=== PATIENT | male | born 1950 | race Caucasian/White ===

== ENCOUNTER 2020-06-18 11:18 | Outpatient (REF) | payer MEDICARE, SELFPAY ==
--- NOTE | 2020-06-18 11:20 | CT_ITS ---
EXAMINATION: CT CHEST SCREENING CLINICAL INFORMATION: Nicotine dependence. COMPARISON: CT chest 05/30/2019. TECHNIQUE: Multidetector volumetric CT imaging of the chest is performed without contrast using low dose technique. Additional 2D coronal and sagittal reformatted images and axial 3D maximum intensity projection (MIP) images are generated on the CT workstation. This CT examination was performed using dose optimization techniques as appropriate, variously including the following: *Automated exposure control *Adjustment of mA and/or kV according to patient size (this includes techniques or standardized protocols for targeted exams where dose is matched to indication/reason for exam; i.e. extremities or head) *Use of iterative reconstruction technique DLP: 48 mGy-cm FINDINGS: LUNGS: There is bilateral minimal apical pleural thickening and scarring. The lungs are otherwise well expanded. There is a 2 mm nodule right upper lobe adjacent to the major fissure on axial image 230/5. Previously it was slightly larger 4 mm. Previously seen defined densities in the right upper lobe have resolved. No new nodule seen. There is plate-like atelectasis in both lung bases. MEDIASTINUM: The thyroid lobes are symmetrical and normal. The central trachea and the bronchi are widely patent. Heart size and the great vessels are normal caliber. No pericardial effusion seen. There are coronary artery calcifications seen. No abnormal-sized mediastinal or hilar lymph node seen. PLEURA: There is no pleural effusion. No pleural mass or thickening. AXILLA: No lymphadenopathy. UPPER ABDOMEN: Visualized liver, spleen, pancreas and bilateral adrenal glands are unremarkable. OSSEOUS STRUCTURES: There are degenerative disc changes and spondylosis with endplate sclerosis at several thoracic and upper lumbar spine. No fracture or lytic process seen. CT/CT lung screening IMPRESSION: Small nodule in the right upper lobe adjacent to the major fissure slightly improved since previous study. Ill-defined nodules in the right upper lobe have resolved. No new nodule seen. Degenerative disc changes throughout dorsal and lumbar spine. ASSESSMENT: Lung-RADS category 2: Benign. RECOMMENDATION: Low dose annual CT chest.
== END 2020-06-18 11:19 | disposition home or self-care (01) ==
LOC: HO.CT 11:18
PROVIDERS: Visit Provider Physician Assistant Medical
DX: Z12.2 Encounter for screening for malignant neoplasm of respiratory organs (principal); F17.210 Nicotine dependence, cigarettes, uncomplicated
CPT/HCPCS: 71271

== ENCOUNTER 2020-06-25 09:02 | Outpatient (REF) | payer MEDICARE, SELFPAY ==
[2020-06-25 11:45] LABS: Cholesterol 216 mg/dL; HDL Cholesterol 40 mg/dL; LDL Cholesterol Calculated 143 mg/dl; Triglycerides 165 mg/dL
== END 2020-06-25 09:03 | disposition home or self-care (01) ==
LOC: HO.HMGCLDS 09:02
PROVIDERS: PCP Internal Medicine; Visit Provider Internal Medicine
DX: E78.5 Hyperlipidemia, unspecified (principal)
CPT/HCPCS: 36415; 80061

== ENCOUNTER 2020-10-22 08:01 | Outpatient (REF) | payer MEDICARE, SELFPAY ==
[2020-10-22 11:59] LABS: Cholesterol 190 mg/dL; HDL Cholesterol 36 mg/dL; LDL Cholesterol Calculated 131 mg/dl; Triglycerides 116 mg/dL
== END 2020-10-22 08:02 | disposition home or self-care (01) ==
LOC: HO.HMGCLDS 08:01
PROVIDERS: PCP Internal Medicine; Visit Provider Internal Medicine
DX: E11.9 Type 2 diabetes mellitus without complications (principal)
CPT/HCPCS: 36415; 80061

== ENCOUNTER 2021-04-05 08:11 | Outpatient (REF) | payer MEDICARE, SELFPAY ==
[2021-04-05 11:27] LABS: MANUAL DIFF FLAG NO
[2021-04-05 11:37] LABS: Basophils Absolute Auto 0.1 X10*3/uL (0.0-0.2); Basophils Percent Auto 0.5 % (0-2); Eosinophils Absolute Auto 0.4 X10*3/uL (0.0-0.4); Hematocrit 43.9 % (42-52); Hemoglobin 14.5 g/dl (14.0-18.0); Imm Gran Abs Auto 0.04 X10*3/uL (0.00-0.03); Imm Gran Pct Auto 0.4 % (0.0-0.4); Lymphocytes Absolute Auto 2.7 X10*3/uL (1.2-4.9); Lymphocytes Percent Auto 28.6 % (20-40); Mean Corpuscular Hemoglobin 31.5 pg (27.0-33.0); Mean Corpuscular Volume 95.2 fL (80-98); Mean Platelet Volume 10.9 fL (9.4-12.4); Monocytes Absolute Auto 0.8 X10*3/uL (0.1-1.2); Monocytes Percent Auto 8.7 % (2-11); Neutrophils Absolute Auto 5.5 X10*3/uL (2.0-8.3); Neutrophils Percent Auto 57.8 % (45-73); Platelet Count 272 X10*3/uL (160-400); Red Blood Count 4.61 X10*6/uL (4.60-5.80); Red Cell Distribution Width 12.9 % (11.0-16.0); White Blood Count 9.6 X10*3/uL (4.8-10.8)
[2021-04-05 12:00] LABS: Alanine Aminotransferase 11 U/L (0-40); Albumin Level 4.1 g/dL (3.5-5.0); Alkaline Phosphatase 54 U/L (39-117); Anion Gap 13 (12-20); Aspartate Amino Transferase 15 U/L (5-37); Bilirubin Total 0.4 mg/dL (0.0-1.0); Blood Urea Nitrogen 17 mg/dL (9-16); Calcium 9.8 mg/dL (8.4-10.2); Carbon Dioxide 26 mmol/L (22-29); Chloride 108 mmol/L (96-108); Cholesterol 197 mg/dL; Estimated Glomerular Filt Rate > 60; Glucose Fasting 86 mg/dL (60-99); HDL Cholesterol 40 mg/dL; LDL Cholesterol Calculated 126 mg/dl; Potassium 4.6 mmol/L (3.3-5.1); Sodium 142 mmol/L (135-145); Total Protein 7.2 g/dL (6.5-8.0); Triglycerides 158 mg/dL
[2021-04-05 12:22] LABS: Thyroid Stimulating Hormone 0.78 uIU/mL (0.32-4.0)
== END 2021-04-05 08:12 | disposition home or self-care (01) ==
LOC: HO.HMGCLDS 08:11
PROVIDERS: PCP Internal Medicine; Visit Provider Internal Medicine
DX: Z00.00 Encounter for general adult medical examination without abnormal findings (principal); E03.9 Hypothyroidism, unspecified; E11.9 Type 2 diabetes mellitus without complications
CPT/HCPCS: 36415; 80053; 80061; 84443; 85025

== ENCOUNTER 2022-04-08 08:40 | Outpatient (REF) | payer MEDICARE, SELFPAY ==
[2022-04-08 11:25] LABS: MANUAL DIFF FLAG NO
[2022-04-08 11:35] LABS: Basophils Absolute Auto 0.1 X10*3/uL (0.0-0.2); Basophils Percent Auto 0.5 % (0-2); Eosinophils Absolute Auto 0.3 X10*3/uL (0.0-0.4); Eosinophils Percent Auto 2.7 % (0-4); Hematocrit 44.3 % (42.0-52.0); Hemoglobin 14.8 g/dl (14.0-18.0); Imm Gran Abs Auto 0.03 X10*3/uL (0.00-0.03); Imm Gran Pct Auto 0.3 % (0.0-0.4); Lymphocytes Absolute Auto 2.8 X10*3/uL (1.2-4.9); Lymphocytes Percent Auto 29.7 % (20-40); Mean Corpuscular HGB Conc 33.4 g/dl (31.0-36.0); Mean Corpuscular Hemoglobin 31.2 pg (27.0-33.0); Mean Corpuscular Volume 93.5 fL (80.0-98.0); Mean Platelet Volume 11.1 fL (9.4-12.4); Monocytes Absolute Auto 0.9 X10*3/uL (0.1-1.2); Monocytes Percent Auto 9.4 % (2-11); Neutrophils Absolute Auto 5.4 x10*3/uL (2.0-8.3); Neutrophils Percent Auto 57.4 % (45-73); Platelet Count 272 X10*3/uL (160-400); Red Blood Count 4.74 X10*6/uL (4.60-5.80); Red Cell Distribution Width 12.5 % (11.0-16.0); White Blood Count 9.4 X10*3/uL (4.8-10.8)
[2022-04-08 11:57] LABS: Alanine Aminotransferase 7 U/L (0-40); Albumin Level 4.1 g/dL (3.5-5.0); Alkaline Phosphatase 60 U/L (39-117); Anion Gap 14 (12-20); Aspartate Amino Transferase 13 U/L (5-37); Bilirubin Total 0.4 mg/dL (0.0-1.0); Blood Urea Nitrogen 21 mg/dL (9-16); Calcium 9.8 mg/dL (8.4-10.2); Carbon Dioxide 25 mmol/L (22-29); Chloride 108 mmol/L (96-108); Cholesterol 217 mg/dL; Estimated Glomerular Filt Rate 60; Glucose Fasting 106 mg/dL (60-99); HDL Cholesterol 36 mg/dL; LDL Cholesterol Calculated 154 mg/dl; Potassium 4.9 mmol/L (3.3-5.1); Sodium 142 mmol/L (135-145); Total Protein 7.2 g/dL (6.5-8.0); Triglycerides 139 mg/dL
== END 2022-04-08 08:41 | disposition home or self-care (01) ==
LOC: HO.HMGCLDS 08:40
PROVIDERS: PCP Internal Medicine; Visit Provider Internal Medicine
DX: Z00.00 Encounter for general adult medical examination without abnormal findings (principal); Z13.0 Encounter for screening for diseases of the blood and blood-forming organs and certain disorders involving the immune mechanism
CPT/HCPCS: 36415; 80053; 80061; 85025

== ENCOUNTER 2022-09-12 23:59 | Emergency (ER) | payer MEDICARE, SELFPAY ==
--- NOTE | ~2022-09-12 | XR_ITS ---
EXAMINATION: XR CHEST CLINICAL INFORMATION: Fever COMPARISON: CT chest 06/18/2020, chest radiograph 05/02/2013 TECHNIQUE: 2 views of the chest were obtained. FINDINGS: Degenerative changes are present throughout the spine with biconvex thoracolumbar scoliosis. No other significant abnormality is noted involving the heart, lungs, mediastinum, bony thorax or soft tissues. XR/XR chest 2V IMPRESSION: No acute intrathoracic disease.
--- NOTE | ~2022-09-12 | CT_ITS ---
EXAMINATION: CT ABDOMEN AND PELVIS WITH CONTRAST CLINICAL INFORMATION: Fever hypotension COMPARISON: None available. TECHNIQUE: Multidetector volumetric images were obtained from the superior aspect of the liver through the pubic symphysis following administration 85 mL of Omnipaque 350 intravenous contrast. Sagittal and coronal reformatted images were obtained on the technologist's workstation. Oral contrast: No This CT examination was performed using dose optimization techniques as appropriate, variously including the following: *Automated exposure control *Adjustment of mA and/or kV according to patient size (this includes techniques or standardized protocols for targeted exams where dose is matched to indication/reason for exam; i.e. extremities or head) *Use of iterative reconstruction technique DLP: 385 mGy-cm FINDINGS: LUNG BASES: The visualized lung bases are unremarkable. LIVER, GALLBLADDER, AND BILIARY TREE: The liver is normal in size, shape, and attenuation. No focal hepatic lesion or biliary ductal dilatation is present. The gallbladder is unremarkable with no evidence of radiopaque gallstones, gallbladder wall thickening, or obvious pericholecystic inflammatory changes. PANCREAS: Unremarkable. SPLEEN: Unremarkable. ADRENAL GLANDS: Unremarkable. KIDNEYS AND URETERS: The kidneys are normal in size, shape, and attenuation. There is a punctate nonobstructive calculus in the region of left kidney. There are bilateral simple renal cysts which are benign. No follow-up imaging recommended. No hydronephrosis or hydroureter. No perinephric abnormalities. BLADDER: Unremarkable. GASTROINTESTINAL TRACT: Normal appendix. Scattered left colonic diverticula without evidence of diverticulitis. Stomach and small bowel unremarkable. ABDOMINAL WALL: No significant hernia is appreciated. LYMPH NODES: Normal. VASCULAR: Aorta is atherosclerotic but normal caliber. Patent vascular structures. PELVIC VISCERA: Unremarkable. OSSEOUS STRUCTURES: No acute or suspicious osseous abnormalities. CT/CT abdomen pelvis w IV con IMPRESSION: * No acute findings within the abdomen or pelvis to explain the patient's symptomatology. * Punctate nonobstructive calculus, left kidney. * Scattered left colonic diverticula without evidence of diverticulitis.
[2022-09-13 00:28] VITALS: BP 137/71; PULSE 98; RESP 16; TEMP 39; O2SAT 97; BMI 20.9
--- NOTE | 2022-09-13 01:08 | ED.FEVER ---
HPI - Fever General Chief Complaint: Fever Stated Complaint: Fever/shakes for 3 hours Time Seen by Provider: 09/13/22 01:06 Source: patient Mode of arrival: ambulatory Limitations: no limitations History of Present Illness HPI Narrative: Patient was healthy came here for fever temperature of 105 degrees at home with shaking chills no cough no urinary symptoms no abdominal pain no nausea no vomiting no other family member sick no history of bacteremia in the past Related Data Home Medications Medication Instructions Recorded Confirmed cholecalciferol (vitamin D3) 25 25 mcg PO DAILY 06/29/20 04/12/22 mcg (1,000 unit) capsule multivitamin 1 tab PO DAILY 10/27/20 04/12/22 Previous Rx's Medication Instructions Recorded ibuprofen 800 mg tablet 800 mg PO Q8H #90 tabs 10/20/20 pravastatin 20 mg tablet 20 mg PO DAILY #90 tabs 04/01/22 cefuroxime axetil 500 mg tablet 500 mg PO BID #14 tabs 09/13/22 ibuprofen 600 mg tablet 600 mg PO Q6H PRN fever or pain 09/13/22 #30 tabs Allergies Allergy/AdvReac Type Severity Reaction Status Date / Time No Known Allergies Allergy Verified 04/12/22 08:43 Review of Systems Review of Systems: Yes all other systems are reviewed and are negative PMFSH Past Medical History Medical History Hyperlipidemia Surgical History H/O basal cell carcinoma excision History of eye surgery Family History Family History Father Stroke Mother No problems noted. Brother No problems noted. Sister Lung cancer Social History Social History Housing: House Alcohol intake: never Patient Tobacco Use Status: Current everyday Tobacco user Tobacco use type: Cigarette Cigarettes Per Day: 10 e-Cigarette/Vaping Use: Never Used Second Hand Smoke Exposure: Yes Advance Directives: No Advance Directives Information Provided: Yes service: No Current occupational status: retired Current occupational exposures/hazards: No Cognitive needs: No Hearing needs: No Vision needs: Yes Physical Exam Vital Signs: Vital Signs: Last Vital Signs Temp 97.7 F 09/13/22 05:55 Pulse 72 09/13/22 05:55 Resp 17 09/13/22 03:26 BP 99/57 L 09/13/22 05:55 Pulse Ox 94 09/13/22 05:55 O2 Del Method Room Air 09/13/22 05:55 BMI result Body Mass Index 20.9 Appearance: Alert. Oriented X3. No acute distress. Eyes: No pallor or icterus ENT: Pharynx normal. Oral Mucosa moist Neck: Normal inspection. Neck supple. CVS: Normal heart rate and rhythm. Pulses normal. Respiratory: No respiratory distress. Equal air entry bilateral, no wheezing/rales/rhonchi Abdomen: Soft and nontender. Bowel sounds are present, no mass palpable, no CVA tenderness Skin: Skin warm and dry. Normal skin color. Normal skin turgor. Extremities: No lower extremity edema. No calf tenderness Neuro: Oriented X 3. No motor deficit. No sensory deficit.No cerebellar signs , cranial nerves II-XII intact Medications Administered Discontinued Medications Generic Name Dose Route Start Last Admin Trade Name Freq PRN Reason Stop Dose Admin Sodium Chloride 1,000 mls @ 999 mls/hr 09/13/22 01:23 09/13/22 01:30 Ns IV 09/13/22 02:23 999 mls/hr .Q1H1M ONE Administration Ceftriaxone Sodium 1 gm/ 50 mls @ 100 mls/hr 09/13/22 01:24 09/13/22 01:29 Sodium Chloride IV 09/13/22 01:53 100 mls/hr ONCE ONE Administration Sodium Chloride 1,000 mls @ 999 mls/hr 09/13/22 03:34 09/13/22 03:35 Ns IV 09/13/22 04:34 999 mls/hr .Q1H1M ONE Administration Ibuprofen 600 mg 09/13/22 01:23 09/13/22 01:29 Ibuprofen 600 Mg Tablet PO 09/13/22 01:24 600 mg ONCE ONE Administration Iohexol 85 ml 09/13/22 04:45 09/13/22 04:45 Iohexol 350 Mg/Ml 100 Ml Infus..Btl IV 09/13/22 04:46 85 ml ONCE ONE Administration Medical Decision Making Medical Decision Making [facility] Narrative: Patient with fever of unknown origin prostate was not tender CT scan abdomen was done to rule out any occult infection which is also negative white count slightly elevated with left shift lactic acid level was normal patient's transient hypotension improved after IV fluids. Patient received IV dose of Rocephin and discharge patient on Ceftin pending blood culture Differential Diagnosis Bacteremia/Gram-negative bacteremia/prostatitis/UTI/pneumonia Lab Data [facility] Lab Attestation statement: I reviewed the patient's lab results. 09/13/22 01:06 09/13/22 01:06 Labs: Lab Results 09/13/22 09/13/22 09/13/22 Range/Units 01:06 01:06 01:06 WBC 14.8 H (4.8-10.8) X10*3/uL RBC 4.46 L (4.60-5.80) X10*6/uL Hgb 13.7 L (14.0-18.0) g/dl Hct 41.0 L (42.0-52.0) % MCV 91.9 (80.0-98.0) fL MCH 30.7 (27.0-33.0) pg MCHC 33.4 (31.0-36.0) g/dl RDW 12.9 (11.0-16.0) % Plt Count 218 (160-400) X10*3/uL MPV 10.2 (9.4-12.4) fL Immature Gran % (Auto) 0.5 H (0.0-0.4) % Neut % (Auto) 83.9 H (45-73) % Lymph % (Auto) 6.2 L (20-40) % [place] % (Auto) 8.7 (2-11) % Eos % (Auto) 0.4 (0-4) % Baso % (Auto) 0.3 (0-2) % Lymph # (Auto) 0.9 L (1.2-4.9) X10*3/uL [place] # (Auto) 1.3 H (0.1-1.2) X10*3/uL Eos # (Auto) 0.1 (0.0-0.4) X10*3/uL Baso # (Auto) 0.1 (0.0-0.2) X10*3/uL Abs Immat Gran (auto) 0.07 H (0.00-0.03) X10*3/uL Absolute Neuts (auto) 12.4 H (2.0-8.3) x10*3/uL Absolute Nucleated RBC 0.000 (0.0-0.012) X10*3/uL Nucleated RBC % (auto) 0.0 (0.0-0.2) /100WBC Sodium 136 (135-145) mmol/L Potassium 4.2 (3.3-5.1) mmol/L Chloride 107 (96-108) mmol/L Carbon Dioxide 21 L (22-29) mmol/L Anion Gap 12 (12-20) BUN 21 H (9-16) mg/dL Creatinine 1.48 H (0.5-1.4) mg/dL Estim Creat Clear Calc 37.6 Estimated GFR 47 Fasting Glucose 96 (60-99) mg/dL Lactic Acid 1.1 (0.5-2.0) mmol/L Calcium 8.9 D (8.4-10.2) mg/dL Total Bilirubin 0.2 (0.0-1.0) mg/dL AST 16 (5-37) U/L ALT 10 (0-40) U/L Alkaline Phosphatase 62 (39-117) U/L Total Protein 6.5 (6.5-8.0) g/dL Albumin 3.8 (3.5-5.0) g/dL Urine Color Urine Appearance Urine pH (5.0-9.0) Ur Specific [place] (1.005-1.025) Urine Protein (Neg-Trace) mg/dL Urine Glucose (UA) (Negative) mg/dL Urine Ketones (Negative) mg/dL Urine Blood (Negative) Urine Nitrite (Negative) Ur Leukocyte Esterase (Negative) Urine RBC (0-2) /HPF Urine WBC (0-5) /HPF Ur Squamous Epith Cells (0-2) /HPF Urine Bacteria (None Seen) Hyaline Casts (0-2) /LPF Influenza Type A (PCR) (Negative) Influenza Type B (PCR) (Negative) RSV RNA Qual (PCR) (Negative) SARS-CoV-2 RNA (RT-PCR) (Negative) 09/13/22 09/13/22 Range/Units 01:06 02:58 WBC (4.8-10.8) X10*3/uL RBC (4.60-5.80) X10*6/uL Hgb (14.0-18.0) g/dl Hct (42.0-52.0) % MCV (80.0-98.0) fL MCH (27.0-33.0) pg MCHC (31.0-36.0) g/dl RDW (11.0-16.0) % Plt Count (160-400) X10*3/uL MPV (9.4-12.4) fL Immature Gran % (Auto) (0.0-0.4) % Neut % (Auto) (45-73) % Lymph % (Auto) (20-40) % [place] % (Auto) (2-11) % Eos % (Auto) (0-4) % Baso % (Auto) (0-2) % Lymph # (Auto) (1.2-4.9) X10*3/uL [place] # (Auto) (0.1-1.2) X10*3/uL Eos # (Auto) (0.0-0.4) X10*3/uL Baso # (Auto) (0.0-0.2) X10*3/uL Abs Immat Gran (auto) (0.00-0.03) X10*3/uL Absolute Neuts (auto) (2.0-8.3) x10*3/uL Absolute Nucleated RBC (0.0-0.012) X10*3/uL Nucleated RBC % (auto) (0.0-0.2) /100WBC Sodium (135-145) mmol/L Potassium (3.3-5.1) mmol/L Chloride (96-108) mmol/L Carbon Dioxide (22-29) mmol/L Anion Gap (12-20) BUN (9-16) mg/dL Creatinine (0.5-1.4) mg/dL Estim Creat Clear Calc Estimated GFR Fasting Glucose (60-99) mg/dL Lactic Acid (0.5-2.0) mmol/L Calcium (8.4-10.2) mg/dL Total Bilirubin (0.0-1.0) mg/dL AST (5-37) U/L ALT (0-40) U/L Alkaline Phosphatase (39-117) U/L Total Protein (6.5-8.0) g/dL Albumin (3.5-5.0) g/dL Urine Color Yellow Urine Appearance Clear Urine pH 5.5 (5.0-9.0) Ur Specific [place] 1.010 (1.005-1.025) Urine Protein Negative (Neg-Trace) mg/dL Urine Glucose (UA) Negative (Negative) mg/dL Urine Ketones Negative (Negative) mg/dL Urine Blood Negative (Negative) Urine Nitrite Negative (Negative) Ur Leukocyte Esterase Trace H (Negative) Urine RBC 0-2 (0-2) /HPF Urine WBC 0-5 (0-5) /HPF Ur Squamous Epith Cells 0-2 (0-2) /HPF Urine Bacteria None Seen (None Seen) Hyaline Casts 0-2 (0-2) /LPF Influenza Type A (PCR) NEGATIVE (Negative) Influenza Type B (PCR) NEGATIVE (Negative) RSV RNA Qual (PCR) NEGATIVE (Negative) SARS-CoV-2 RNA (RT-PCR) NEGATIVE (Negative) Discharge Plan Discharge Clinical Impression: Fever of unknown origin Patient Disposition: Home, Self-Care Instructions: Fever in Adults (ED) Additional Instructions: Keep hydrated Cause of fever not clear Take antibiotics as prescribed Report to the ER if continued to have fever not feeling good Prescriptions: New ibuprofen 600 mg tablet 600 mg PO Q6H PRN (Reason: fever or pain) Qty: 30 0RF cefuroxime axetil 500 mg tablet 500 mg PO BID Qty: 14 0RF No Action ibuprofen 800 mg tablet 800 mg PO Q8H Qty: 90 8RF pravastatin 20 mg tablet 20 mg PO DAILY Qty: 90 3RF cholecalciferol (vitamin D3) 25 mcg (1,000 unit) capsule 25 mcg PO DAILY multivitamin Tablet 1 tab PO DAILY
[2022-09-13 01:18] LABS: Basophils Absolute Auto 0.1 X10*3/uL (0.0-0.2); Basophils Percent Auto 0.3 % (0-2); Eosinophils Absolute Auto 0.1 X10*3/uL (0.0-0.4); Eosinophils Percent Auto 0.4 % (0-4); Hemoglobin 13.7 g/dl (14.0-18.0); Imm Gran Abs Auto 0.07 X10*3/uL (0.00-0.03); Imm Gran Pct Auto 0.5 % (0.0-0.4); Lymphocytes Absolute Auto 0.9 X10*3/uL (1.2-4.9); Lymphocytes Percent Auto 6.2 % (20-40); MANUAL DIFF FLAG NO; Mean Corpuscular HGB Conc 33.4 g/dl (31.0-36.0); Mean Corpuscular Hemoglobin 30.7 pg (27.0-33.0); Mean Corpuscular Volume 91.9 fL (80.0-98.0); Mean Platelet Volume 10.2 fL (9.4-12.4); Monocytes Absolute Auto 1.3 X10*3/uL (0.1-1.2); Monocytes Percent Auto 8.7 % (2-11); Neutrophils Absolute Auto 12.4 x10*3/uL (2.0-8.3); Neutrophils Percent Auto 83.9 % (45-73); Platelet Count 218 X10*3/uL (160-400); Red Blood Count 4.46 X10*6/uL (4.60-5.80); Red Cell Distribution Width 12.9 % (11.0-16.0); White Blood Count 14.8 X10*3/uL (4.8-10.8)
[2022-09-13 01:28] LABS: Lactic Acid 1.1 mmol/L (0.5-2.0)
[2022-09-13] MEDS: Ibuprofen 600 MG TABLET PO (01:29)
[2022-09-13] MEDS: cefTRIAXone sodium 1 GM in 0.9 % Sodium Chloride 50 ML IV (01:29)
[2022-09-13] MEDS: 0.9 % Sodium Chloride 1,000 ML 999 ML IV ×2 (01:30→03:35)
[2022-09-13 01:45] LABS: Alanine Aminotransferase 10 U/L (0-40); Albumin Level 3.8 g/dL (3.5-5.0); Alkaline Phosphatase 62 U/L (39-117); Anion Gap 12 (12-20); Aspartate Amino Transferase 16 U/L (5-37); Bilirubin Total 0.2 mg/dL (0.0-1.0); Blood Urea Nitrogen 21 mg/dL (9-16); Calcium 8.9 mg/dL (8.4-10.2); Carbon Dioxide 21 mmol/L (22-29); Chloride 107 mmol/L (96-108); Creatinine Clr Calc Pharmacy 37.6; Estimated Glomerular Filt Rate 47; Glucose Fasting 96 mg/dL (60-99); Potassium 4.2 mmol/L (3.3-5.1); Sodium 136 mmol/L (135-145); Total Protein 6.5 g/dL (6.5-8.0)
[2022-09-13 01:55] LABS: Influenza A PCR NEGATIVE (Negative); Influenza B PCR NEGATIVE (Negative); Resp Syncy Virus RNA Qual PCR NEGATIVE (Negative); SARS COV2 PCR INHOUSE NEGATIVE (Negative)
[2022-09-13 03:11] LABS: Appearance Urine Clear; Color Urine Yellow; Glucose Urine UA Negative (Negative); Leukocyte Esterase Urine Trace (Negative); Nitrite Urine Negative (Negative); PH 5.5 (5.0-9.0); UMIC TRIGGER UACC YES; Urine Blood Negative (Negative); Urine Ketones Negative (Negative); Urine Protein Negative (Neg-Trace)
[2022-09-13 03:15] LABS: Bacteria Urine None Seen (None Seen); Hyaline Casts Urine 0-2 /LPF (0-2); RBC Urine 0-2 /HPF (0-2); Squamous Epithelial Cell Urine 0-2 /HPF (0-2); WBC Urine 0-5 /HPF (0-5)
[2022-09-13 03:26] VITALS: BP 84/47; PULSE 94; RESP 17; TEMP 36.7; O2SAT 94
[2022-09-13] MEDS: iohexoL 350 MG/ML 100 ML INFUS..BTL 85 ML IV (04:45)
[2022-09-13 05:55] VITALS: BP 99/57; PULSE 72; TEMP 36.5; O2SAT 94
[2022-09-13 06:52] VITALS: TEMP 36.8
== END 2022-09-13 06:54 | disposition home or self-care (01) ==
PROVIDERS: Emergency Provider Internal Medicine; PCP Internal Medicine
DX: R50.9 Fever, unspecified (principal); Z20.822 Contact with and (suspected) exposure to COVID-19; Z20.828 Contact with and (suspected) exposure to other viral communicable diseases
CPT/HCPCS: 0241U; 36415; 71046; 74177; 80053; 81001; 83605; 85025; 87040; 87077; 87186; 87205; 96374; 99284; 99285; J0696; Q9967

== ENCOUNTER 2022-09-13 14:39 | Inpatient (IN) | payer MEDICARE, OTHER, SELFPAY ==
--- NOTE | ~2022-09-13 | CT_ITS ---
EXAMINATION: CT CHEST WITHOUT CONTRAST CLINICAL INFORMATION: Shortness of breath and pneumonia COMPARISON: CT chest 06/18/2020, Chest radiograph earlier today : -Trace blunting left lateral costophrenic angle. Otherwise no overt effusion. -No airspace consolidation or air bronchogram. TECHNIQUE: Multidetector volumetric CT imaging of the chest was done. Axial MIP volume rendering provided. Sagittal and coronal reformatted images were obtained. This CT examination was performed using dose optimization techniques as appropriate, variously including the following: *Automated exposure control *Adjustment of mA and/or kV according to patient size (this includes techniques or standardized protocols for targeted exams where dose is matched to indication/reason for exam; i.e. extremities or head) *Use of iterative reconstruction technique DLP: 245 mGy-cm FINDINGS: LUNGS: Bibasilar atelectasis is present. No evidence of pneumonia or consolidation. A tiny right middle lobe. Fissural 3 mm nodule is present (5:252) which was also present on the 06/18/2020 CT (prior 6:259). No worrisome lung masses are seen. MEDIASTINUM: Heart size normal. No pericardial effusion. No mediastinal or hilar lymphadenopathy. Calcific atherosclerotic changes seen in the thoracic aorta without aneurysm. CORONARY ARTERY CALCIFICATION: Extensive triple-vessel coronary calcifications PLEURA: There is no pleural effusion. No pleural mass or thickening. AXILLA: No lymphadenopathy. UPPER ABDOMEN: There is vicarious excretion of contrast in the bladder from CT abdomen performed this morning. A benign Bosniak class I left renal cyst is again seen. This requires no additional imaging or follow-up OSSEOUS STRUCTURES: Moderate degenerative changes are present throughout the spine. No bony destructive lesions. CT/CT chest wo IV con IMPRESSION: 1. A cause for the patient's shortness of breath has not been found. 2. No evidence of pneumonia. 3. Incidental note made of extensive triple-vessel coronary calcifications, unchanged 3 mm pulmonary nodule and degenerative changes in the spine. Fleischner guidelines were followed.
--- NOTE | ~2022-09-13 | XR_ITS ---
EXAMINATION: XR CHEST CLINICAL INFORMATION: Fever, shortness of breath. COMPARISON: Chest radiographs 09/13/2022, 05/02/2013, CT abdomen 09/13/2022. TECHNIQUE: Frontal view of the chest was obtained. FINDINGS: There is no lobar or segmental airspace consolidation or groundglass opacity. There is borderline blunting left lateral costophrenic angle. Otherwise no overt effusion. Faint nipple shadow again seen on right. The heart is normal in size. The vascularity is normal. The hilar and mediastinal contours and bony structures are stable. XR/XR chest 1V IMPRESSION: -Trace blunting left lateral costophrenic angle. Otherwise no overt effusion. -No airspace consolidation or air bronchogram.
--- NOTE | 2022-09-13 15:04 | ED_ITS ---
HPI - General Adult General Chief complaint: Recheck/Abnormal Lab/Rx <FRANCISCO Bland - Last Filed: 09/13/22 15:07> Stated complaint: Abnormal labs <FRANCISCO Bland - Last Filed: 09/13/22 15:07> Time Seen by Provider: 09/13/22 17:14 <FRANCISCO Bland - Last Filed: 09/13/22 15:07> Source: patient and family <Kylie Campbell MD - Last Filed: 09/13/22 20:10> Mode of arrival: ambulatory <Kylie Campbell MD - Last Filed: 09/13/22 20:10> History of Present Illness HPI narrative: 71-year-old male who is an everyday smoker presents after being called for blood cultures growing Gram-negative rods demonstrating bacteremia. On review of patient's previous workup he had fevers with a T-max of 102 degrees, chills, and has had a persistent cough for over a month. Patient was discharged home as imaging studies were not indicative for source but he was empirically started on antibiotics. Patient states he has had some chills throughout the day but overall denies any shortness of breath, chest pain, palpitations. <Kylie Campbell MD - Last Filed: 09/13/22 20:10> Related Data Home medications: Home Medications Medication Instructions Recorded Confirmed cholecalciferol (vitamin D3) 25 25 mcg PO DAILY 06/29/20 09/13/22 mcg (1,000 unit) capsule multivitamin 1 tab PO DAILY 10/27/20 09/13/22 Previous Rx's Medication Instructions Recorded pravastatin 20 mg tablet 20 mg PO DAILY #90 tabs 04/01/22 <FRANCISCO Bland - Last Filed: 09/13/22 15:07> Allergies/adverse reactions: Allergies Allergy/AdvReac Type Severity Reaction Status Date / Time No Known Allergies Allergy Verified 09/13/22 15:04 <FRANCISCO Bland - Last Filed: 09/13/22 15:07> Review of Systems Review of Systems: Pertinent positives and negatives as stated in HPI <Kylie Campbell MD - Last Filed: 09/13/22 20:10> PMFSH Past Medical History Source: nursing notes reviewed <Kylie Campbell MD - Last Filed: 09/13/22 20:10> Medical History: Medical History (Updated 09/13/22 @ 19:58 by FRANCISCO Garcia) Cigarette nicotine dependence Hyperlipidemia <FRANCISCO Bland - Last Filed: 09/13/22 15:07> Surgical History: Surgical History H/O basal cell carcinoma excision History of eye surgery <FRANCISCO Bland - Last Filed: 09/13/22 15:07> Family History Family History: Family History Father Stroke Mother No problems noted. Brother No problems noted. Sister Lung cancer <FRANCISCO Bland - Last Filed: 09/13/22 15:07> Social History Social History: Social History Housing: House Alcohol intake: never Patient Tobacco Use Status: Current everyday Tobacco user Tobacco use type: Cigarette Cigarettes Per Day: 10 Smoked in Last 30 Days: Yes e-Cigarette/Vaping Use: Never Used Second Hand Smoke Exposure: Yes Use of substances other than those prescribed or required for medical reasons: No Advance Directives: No Advance Directives Information Provided: No service: No Current occupational status: retired Current occupational exposures/hazards: No Cognitive needs: No Hearing needs: No Vision needs: Yes <FRANCISCO Bland - Last Filed: 09/13/22 15:07> Physical Exam ED Vital Signs: Vital Signs - 24 hr 09/13/22 15:05 09/13/22 17:38 09/13/22 19:04 Temperature 98 F 98.2 F Pulse Rate 81 72 73 Respiratory Rate 19 20 20 Blood Pressure 126/62 121/67 125/69 Pulse Oximetry 97 95 98 Oxygen Delivery Method Room Air Room Air Room Air BMI result Body Mass Index 20.9 <FRANCISCO Bland - Last Filed: 09/13/22 15:07> Vital Signs - 24 hr 09/13/22 15:05 09/13/22 17:38 09/13/22 19:04 Temperature 98 F 98.2 F Pulse Rate 81 72 73 Respiratory Rate 19 20 20 Blood Pressure 126/62 121/67 125/69 Pulse Oximetry 97 95 98 Oxygen Delivery Method Room Air Room Air Room Air BMI result Body Mass Index 20.9 VITAL SIGNS: Reviewed. GENERAL: Well developed, well nourished, in no acute distress. HEAD: Normocephalic/atraumatic EYES: PERRLA, EOMI EARS: Ext canals without abnormality LUNGS: Good inspiratory effort but decreased breath sounds and crackles noted at the right lower lobe. SpO2<95> CARDIOVASCULAR: Regular rate and rhythm without noted murmurs, no JVD or lower extremity edema. ABDOMEN: Soft, non-tender, non-distended with bowel sounds. MUSCULOSKELETAL: No tenderness, deformities, or effusions noted on gross inspection. EXTREMITIES: No cyanosis, clubbing or edema. SKIN: Inspection of the skin reveals no rashes NEUROLOGIC: Alert and oriented x 4. Strength and sensation to light touch were grossly intact x 4. <Kylie Campbell MD - Last Filed: 09/13/22 20:10> Course Course Course Narrative: This is an RME: Additional HPI, ROS, PE not included below will be deferred to primary provider. 71 year old male hx of HLD presents to ED After receiving a call for positive blood cultures, patient was seen here earlier today for fever of unknown origin, he presented initially yesterday with fevers at home, with shaking chills without any other medical complaints. Patient tells me he still feels warm. No history of bacteremia. Denies chest pain, shortness of breath. Patient was discharged home with cefuroxime 500 mg po BID, has only taken one dose. According to chart review blood cultures grew Gram-negative rods and 1/2 sets. Plan at this time is to be order blood work, urine, chest x-ray, blood cultures and lactic acid. <FRANCISCO Bland - Last Filed: 09/13/22 15:07> Medications Administered Discontinued Medications Generic Name Dose Route Start Last Admin Trade Name Freq PRN Reason Stop Dose Admin Sodium Chloride 1,000 mls @ 999 mls/hr 09/13/22 15:15 09/13/22 18:43 Ns IV 09/13/22 16:15 Infused .Q1H1M BARI Infusion Cefepime HCl 2 gm/ Sodium 50 mls @ 100 mls/hr 09/13/22 18:30 09/13/22 18:42 Chloride IV 09/13/22 18:59 100 mls/hr ONCE ONE Administration <FRANCISCO Bland - Last Filed: 09/13/22 15:07> Medications Administered Discontinued Medications Generic Name Dose Route Start Last Admin Trade Name Robina PRN Reason Stop Dose Admin Sodium Chloride 1,000 mls @ 999 mls/hr 09/13/22 15:15 09/13/22 18:43 Ns IV 09/13/22 16:15 Infused .Q1H1M BARI Infusion Cefepime HCl 2 gm/ Sodium 50 mls @ 100 mls/hr 09/13/22 18:30 09/13/22 18:42 Chloride IV 09/13/22 18:59 100 mls/hr ONCE ONE Administration <Kylie Campbell MD - Last Filed: 09/13/22 20:10> Medical Decision Making Medical Decision Making MDM Narrative: 182: 71-year-old male who was seen here last night for fever of unknown origin and was and called earlier today for positive blood cultures which on my review demonstrate Gram-negative rods, patient does report he has had a chronic cough and did experience fevers and chills yesterday. I reviewed the CT abdomen pelvis with IV contrast which did not demonstrate any intra-abdominal findings, chest x-ray and on my clinical exam today I do appreciate some crackles and decreased breath sounds at the right lower lobe but on review of chest x-ray there is no report of consolidative process. Will proceed with CT scan, give IV antibiotics, and speak to the hospitalist. 184: I discussed the case with Dr. Gastelum who agrees for admission but patient will likely have a completed admission after the a CT of the chest. Patient is hemodynamically stable. <Kylie Campbell MD - Last Filed: 09/13/22 20:10> Differential Diagnosis Please see the discussion above <Kylie Campbell MD - Last Filed: 09/13/22 20:10> Consult Healthcare Provider 1830: I discussed the case with inpatient hospitalist. <Kylie Campbell MD - Last Filed: 09/13/22 20:10> Lab Data Please see the discussion above <Kylie Campbell MD - Last Filed: 09/13/22 20:10> Result Diagrams: 04/04/23 16:00 09/13/22 16:00 <FRANCISCO Bland - Last Filed: 09/13/22 15:07> Labs: Lab Results 09/13/22 09/13/22 09/13/22 Range/Units 16:00 16:00 16:00 WBC 14.4 H (4.8-10.8) X10*3/uL RBC 4.11 L (4.60-5.80) X10*6/uL Hgb 12.6 L (14.0-18.0) g/dl Hct 37.9 L (42.0-52.0) % MCV 92.2 (80.0-98.0) fL MCH 30.7 (27.0-33.0) pg MCHC 33.2 (31.0-36.0) g/dl RDW 13.0 (11.0-16.0) % Plt Count 182 (160-400) X10*3/uL MPV 10.3 (9.4-12.4) fL Immature Gran % (Auto) 0.6 H (0.0-0.4) % Neut % (Auto) 82.0 H (45-73) % Lymph % (Auto) 8.2 L (20-40) % [place] % (Auto) 8.0 (2-11) % Eos % (Auto) 0.8 (0-4) % Baso % (Auto) 0.4 (0-2) % Lymph # (Auto) 1.2 (1.2-4.9) X10*3/uL [place] # (Auto) 1.2 (0.1-1.2) X10*3/uL Eos # (Auto) 0.1 (0.0-0.4) X10*3/uL Baso # (Auto) 0.1 (0.0-0.2) X10*3/uL Abs Immat Gran (auto) 0.09 H (0.00-0.03) X10*3/uL Absolute Neuts (auto) 11.8 H (2.0-8.3) x10*3/uL Absolute Nucleated RBC 0.000 (0.0-0.012) X10*3/uL Nucleated RBC % (auto) 0.0 (0.0-0.2) /100WBC Sodium (135-145) mmol/L Potassium (3.3-5.1) mmol/L Chloride (96-108) mmol/L Carbon Dioxide (22-29) mmol/L Anion Gap (12-20) BUN (9-16) mg/dL Creatinine (0.5-1.4) mg/dL Estim Creat Clear Calc Estimated GFR Random Glucose (60-115) mg/dL Lactic Acid 0.9 (0.5-2.0) mmol/L Calcium (8.4-10.2) mg/dL Magnesium (1.6-2.6) mg/dL Total Bilirubin (0.0-1.0) mg/dL AST (5-37) U/L ALT (0-40) U/L Alkaline Phosphatase (39-117) U/L Total Protein (6.5-8.0) g/dL Albumin (3.5-5.0) g/dL Urine Color Urine Appearance Urine pH (5.0-9.0) Ur Specific [place] (1.005-1.025) Urine Protein (Neg-Trace) mg/dL Urine Glucose (UA) (Negative) mg/dL Urine Ketones (Negative) mg/dL Urine Blood (Negative) Urine Nitrite (Negative) Ur Leukocyte Esterase (Negative) Urine RBC (0-2) /HPF Urine WBC (0-5) /HPF Ur Squamous Epith Cells (0-2) /HPF Urine Bacteria (None Seen) Hyaline Casts (0-2) /LPF COVID-19 (TEZ) (Negative) COVID-19 Clin Com Influenza Type A (SIS) Negative (Negative) Influenza Type B (SIS) Negative (Negative) Influenza A & B Note See Note 09/13/22 09/13/22 09/13/22 Range/Units 16:00 16:00 16:06 WBC (4.8-10.8) X10*3/uL RBC (4.60-5.80) X10*6/uL Hgb (14.0-18.0) g/dl Hct (42.0-52.0) % MCV (80.0-98.0) fL MCH (27.0-33.0) pg MCHC (31.0-36.0) g/dl RDW (11.0-16.0) % Plt Count (160-400) X10*3/uL MPV (9.4-12.4) fL Immature Gran % (Auto) (0.0-0.4) % Neut % (Auto) (45-73) % Lymph % (Auto) (20-40) % [place] % (Auto) (2-11) % Eos % (Auto) (0-4) % Baso % (Auto) (0-2) % Lymph # (Auto) (1.2-4.9) X10*3/uL [place] # (Auto) (0.1-1.2) X10*3/uL Eos # (Auto) (0.0-0.4) X10*3/uL Baso # (Auto) (0.0-0.2) X10*3/uL Abs Immat Gran (auto) (0.00-0.03) X10*3/uL Absolute Neuts (auto) (2.0-8.3) x10*3/uL Absolute Nucleated RBC (0.0-0.012) X10*3/uL Nucleated RBC % (auto) (0.0-0.2) /100WBC Sodium 136 (135-145) mmol/L Potassium 3.9 (3.3-5.1) mmol/L Chloride 107 (96-108) mmol/L Carbon Dioxide 21 L (22-29) mmol/L Anion Gap 12 (12-20) BUN 17 H (9-16) mg/dL Creatinine 1.08 (0.5-1.4) mg/dL Estim Creat Clear Calc 51.5 Estimated GFR > 60 Random Glucose 111 (60-115) mg/dL Lactic Acid (0.5-2.0) mmol/L Calcium 8.5 (8.4-10.2) mg/dL Magnesium 1.9 (1.6-2.6) mg/dL Total Bilirubin 0.5 (0.0-1.0) mg/dL AST 14 (5-37) U/L ALT 10 (0-40) U/L Alkaline Phosphatase 54 (39-117) U/L Total Protein 6.0 L (6.5-8.0) g/dL Albumin 3.5 (3.5-5.0) g/dL Urine Color Yellow Urine Appearance Clear Urine pH 5.0 (5.0-9.0) Ur Specific [place] 1.015 (1.005-1.025) Urine Protein Negative (Neg-Trace) mg/dL Urine Glucose (UA) Negative (Negative) mg/dL Urine Ketones Negative (Negative) mg/dL Urine Blood Negative (Negative) Urine Nitrite Negative (Negative) Ur Leukocyte Esterase Small (1+) H (Negative) Urine RBC 0-2 (0-2) /HPF Urine WBC 0-5 (0-5) /HPF Ur Squamous Epith Cells 0-2 (0-2) /HPF Urine Bacteria None Seen (None Seen) Hyaline Casts 0-2 (0-2) /LPF COVID-19 (TEZ) Negative (Negative) COVID-19 Clin Com See Note Influenza Type A (SIS) (Negative) Influenza Type B (SIS) (Negative) Influenza A & B Note <FRANCISCO Bland - Last Filed: 09/13/22 15:07> Lab Results 09/13/22 09/13/22 09/13/22 Range/Units 16:00 16:00 16:00 WBC 14.4 H (4.8-10.8) X10*3/uL RBC 4.11 L (4.60-5.80) X10*6/uL Hgb 12.6 L (14.0-18.0) g/dl Hct 37.9 L (42.0-52.0) % MCV 92.2 (80.0-98.0) fL MCH 30.7 (27.0-33.0) pg MCHC 33.2 (31.0-36.0) g/dl RDW 13.0 (11.0-16.0) % Plt Count 182 (160-400) X10*3/uL MPV 10.3 (9.4-12.4) fL Immature Gran % (Auto) 0.6 H (0.0-0.4) % Neut % (Auto) 82.0 H (45-73) % Lymph % (Auto) 8.2 L (20-40) % [place] % (Auto) 8.0 (2-11) % Eos % (Auto) 0.8 (0-4) % Baso % (Auto) 0.4 (0-2) % Lymph # (Auto) 1.2 (1.2-4.9) X10*3/uL [place] # (Auto) 1.2 (0.1-1.2) X10*3/uL Eos # (Auto) 0.1 (0.0-0.4) X10*3/uL Baso # (Auto) 0.1 (0.0-0.2) X10*3/uL Abs Immat Gran (auto) 0.09 H (0.00-0.03) X10*3/uL Absolute Neuts (auto) 11.8 H (2.0-8.3) x10*3/uL Absolute Nucleated RBC 0.000 (0.0-0.012) X10*3/uL Nucleated RBC % (auto) 0.0 (0.0-0.2) /100WBC Sodium (135-145) mmol/L Potassium (3.3-5.1) mmol/L Chloride (96-108) mmol/L Carbon Dioxide (22-29) mmol/L Anion Gap (12-20) BUN (9-16) mg/dL Creatinine (0.5-1.4) mg/dL Estim Creat Clear Calc Estimated GFR Random Glucose (60-115) mg/dL Lactic Acid 0.9 (0.5-2.0) mmol/L Calcium (8.4-10.2) mg/dL Magnesium (1.6-2.6) mg/dL Total Bilirubin (0.0-1.0) mg/dL AST (5-37) U/L ALT (0-40) U/L Alkaline Phosphatase (39-117) U/L Total Protein (6.5-8.0) g/dL Albumin (3.5-5.0) g/dL Urine Color Urine Appearance Urine pH (5.0-9.0) Ur Specific [place] (1.005-1.025) Urine Protein (Neg-Trace) mg/dL Urine Glucose (UA) (Negative) mg/dL Urine Ketones (Negative) mg/dL Urine Blood (Negative) Urine Nitrite (Negative) Ur Leukocyte Esterase (Negative) Urine RBC (0-2) /HPF Urine WBC (0-5) /HPF Ur Squamous Epith Cells (0-2) /HPF Urine Bacteria (None Seen) Hyaline Casts (0-2) /LPF COVID-19 (TEZ) (Negative) COVID-19 Clin Com Influenza Type A (SIS) Negative (Negative) Influenza Type B (SIS) Negative (Negative) Influenza A & B Note See Note 09/13/22 09/13/22 09/13/22 Range/Units 16:00 16:00 16:06 WBC (4.8-10.8) X10*3/uL RBC (4.60-5.80) X10*6/uL Hgb (14.0-18.0) g/dl Hct (42.0-52.0) % MCV (80.0-98.0) fL MCH (27.0-33.0) pg MCHC (31.0-36.0) g/dl RDW (11.0-16.0) % Plt Count (160-400) X10*3/uL MPV (9.4-12.4) fL Immature Gran % (Auto) (0.0-0.4) % Neut % (Auto) (45-73) % Lymph % (Auto) (20-40) % [place] % (Auto) (2-11) % Eos % (Auto) (0-4) % Baso % (Auto) (0-2) % Lymph # (Auto) (1.2-4.9) X10*3/uL [place] # (Auto) (0.1-1.2) X10*3/uL Eos # (Auto) (0.0-0.4) X10*3/uL Baso # (Auto) (0.0-0.2) X10*3/uL Abs Immat Gran (auto) (0.00-0.03) X10*3/uL Absolute Neuts (auto) (2.0-8.3) x10*3/uL Absolute Nucleated RBC (0.0-0.012) X10*3/uL Nucleated RBC % (auto) (0.0-0.2) /100WBC Sodium 136 (135-145) mmol/L Potassium 3.9 (3.3-5.1) mmol/L Chloride 107 (96-108) mmol/L Carbon Dioxide 21 L (22-29) mmol/L Anion Gap 12 (12-20) BUN 17 H (9-16) mg/dL Creatinine 1.08 (0.5-1.4) mg/dL Estim Creat Clear Calc 51.5 Estimated GFR > 60 Random Glucose 111 (60-115) mg/dL Lactic Acid (0.5-2.0) mmol/L Calcium 8.5 (8.4-10.2) mg/dL Magnesium 1.9 (1.6-2.6) mg/dL Total Bilirubin 0.5 (0.0-1.0) mg/dL AST 14 (5-37) U/L ALT 10 (0-40) U/L Alkaline Phosphatase 54 (39-117) U/L Total Protein 6.0 L (6.5-8.0) g/dL Albumin 3.5 (3.5-5.0) g/dL Urine Color Yellow Urine Appearance Clear Urine pH 5.0 (5.0-9.0) Ur Specific [place] 1.015 (1.005-1.025) Urine Protein Negative (Neg-Trace) mg/dL Urine Glucose (UA) Negative (Negative) mg/dL Urine Ketones Negative (Negative) mg/dL Urine Blood Negative (Negative) Urine Nitrite Negative (Negative) Ur Leukocyte Esterase Small (1+) H (Negative) Urine RBC 0-2 (0-2) /HPF Urine WBC 0-5 (0-5) /HPF Ur Squamous Epith Cells 0-2 (0-2) /HPF Urine Bacteria None Seen (None Seen) Hyaline Casts 0-2 (0-2) /LPF COVID-19 (TEZ) Negative (Negative) COVID-19 Clin Com See Note Influenza Type A (SIS) (Negative) Influenza Type B (SIS) (Negative) Influenza A & B Note <Kylie Campbell MD - Last Filed: 09/13/22 20:10> Independent Interpretation I performed an independent interpretation of an: EKG <Kylie Campbell MD - Last Filed: 09/13/22 20:10> Interpretation: Normal sinus rhythm, HR-71, no STEMI, PA/QRS/QTC is within normal limits. <Kylie Campbell MD - Last Filed: 09/13/22 20:10> Radiology Impression Radiologist Impression: My interpretation is in agreement with radiology's impression of the imaging studies. <Kylie Campbell MD - Last Filed: 09/13/22 20:10> External Record Review External record reviewed: Outpatient record and Prior outpatient labs <Kylie Campbell MD - Last Filed: 09/13/22 20:10> Discharge Plan Discharge Clinical Impression: Fever of unknown origin, Bacteremia <FRANCISCO Bland - Last Filed: 09/13/22 15:07> Patient Disposition: Admitted As Inpatient <FRANCISCO Bland - Last Filed: 09/13/22 15:07>
[2022-09-13 15:05] VITALS: BP 126/62; PULSE 81; RESP 19; TEMP 36.6; O2SAT 97; BMI 20.9
[2022-09-13 16:06] LABS: MANUAL DIFF FLAG NO
[2022-09-13 16:13] LABS: Basophils Absolute Auto 0.1 X10*3/uL (0.0-0.2); Basophils Percent Auto 0.4 % (0-2); Eosinophils Absolute Auto 0.1 X10*3/uL (0.0-0.4); Eosinophils Percent Auto 0.8 % (0-4); Hematocrit 37.9 % (42.0-52.0); Hemoglobin 12.6 g/dl (14.0-18.0); Imm Gran Abs Auto 0.09 X10*3/uL (0.00-0.03); Imm Gran Pct Auto 0.6 % (0.0-0.4); Lymphocytes Absolute Auto 1.2 X10*3/uL (1.2-4.9); Lymphocytes Percent Auto 8.2 % (20-40); Mean Corpuscular HGB Conc 33.2 g/dl (31.0-36.0); Mean Corpuscular Hemoglobin 30.7 pg (27.0-33.0); Mean Corpuscular Volume 92.2 fL (80.0-98.0); Mean Platelet Volume 10.3 fL (9.4-12.4); Monocytes Absolute Auto 1.2 X10*3/uL (0.1-1.2); Neutrophils Absolute Auto 11.8 x10*3/uL (2.0-8.3); Platelet Count 182 X10*3/uL (160-400); Red Blood Count 4.11 X10*6/uL (4.60-5.80); White Blood Count 14.4 X10*3/uL (4.8-10.8)
[2022-09-13 16:14] LABS: Appearance Urine Clear; Color Urine Yellow; Glucose Urine UA Negative (Negative); Leukocyte Esterase Urine Small (1+) (Negative); Nitrite Urine Negative (Negative); Specific Gravity - Urine 1.015 (1.005-1.025); UMIC TRIGGER UACC YES; Urine Blood Negative (Negative); Urine Ketones Negative (Negative); Urine Protein Negative (Neg-Trace)
[2022-09-13 16:21] LABS: Lactic Acid 0.9 mmol/L (0.5-2.0)
[2022-09-13 16:22] LABS: COVID-19 Test Negative (Negative); IDNOW Serial# BCCEAD1C
[2022-09-13 16:26] LABS: Alanine Aminotransferase 10 U/L (0-40); Albumin Level 3.5 g/dL (3.5-5.0); Alkaline Phosphatase 54 U/L (39-117); Anion Gap 12 (12-20); Aspartate Amino Transferase 14 U/L (5-37); Bilirubin Total 0.5 mg/dL (0.0-1.0); Blood Urea Nitrogen 17 mg/dL (9-16); Calcium 8.5 mg/dL (8.4-10.2); Carbon Dioxide 21 mmol/L (22-29); Chloride 107 mmol/L (96-108); Creatinine Clr Calc Pharmacy 51.5; Estimated Glomerular Filt Rate > 60; Glucose Random 111 mg/dL (60-115); Magnesium 1.9 mg/dL (1.6-2.6); Potassium 3.9 mmol/L (3.3-5.1); Sodium 136 mmol/L (135-145)
[2022-09-13 16:27] LABS: IDNOW Serial# 9DB6401D
[2022-09-13 16:28] LABS: Influenza A Negative (Negative); Influenza B2 Negative (Negative)
[2022-09-13 16:39] LABS: Bacteria Urine None Seen (None Seen); Hyaline Casts Urine 0-2 /LPF (0-2); RBC Urine 0-2 /HPF (0-2); Squamous Epithelial Cell Urine 0-2 /HPF (0-2); UACC Culture Trigger YES; WBC Urine 0-5 /HPF (0-5)
[2022-09-13 17:38] VITALS: BP 121/67; PULSE 72; RESP 20; TEMP 36.8; O2SAT 95
--- NOTE | 2022-09-13 17:47 | PC.NURSE ---
Pt returnd to hospital after receiving a call from a provider for abnormal labs, he is aox4. Denies chills today. IV placed. NS running per order. no complaints of pain at this time
[2022-09-13] MEDS: 0.9 % Sodium Chloride 1,000 ML 999 ML IV (17:49)
--- NOTE | 2022-09-13 18:31 | ECG_ITS ---
Test Reason : SOB Blood Pressure : / mmHG Vent. Rate : 071 BPM Atrial Rate : 071 BPM P-R Int : 172 ms QRS Dur : 094 ms QT Int : 366 ms P-R-T Axes : 072 061 061 degrees QTc Int : 397 ms Normal sinus rhythm Normal ECG No previous ECGs available Referred By: Kylie Campbell Electronically Signed By:Daryn Majano
[2022-09-13] MEDS: cefEPime HCl 2 GM in 0.9 % Sodium Chloride 50 ML IV (18:42)
[2022-09-13 19:04] VITALS: BP 125/69; PULSE 73; RESP 20; O2SAT 98
--- NOTE | 2022-09-13 19:04 | PC.NURSE ---
Report received. Pt denies any needs at this time. VSS.
--- NOTE | 2022-09-13 19:38 | PM.IMHP ---
History of Present Illness Date of Service: 09/13/22 Attending physician on admission: Cole Florez Chief Complaint: fever 71-year-old male with history hyperlipidemia Who is a current 10-15 cigarettes per day smoker presented to the ED earlier today after being called by our staff to return for further evaluation of a Gram-negative bacteremia. last night, the patient developed high fevers though he did not check his temperature. There was associated shakes and sweats. He denies any other associated symptoms including sore throat, congestion, abdominal pain, nausea, vomiting, diarrhea, cough, dysuria, hematuria, increased urinary frequency, shortness of breath, lightheadedness, headaches, or chest pain. Denies recent illness. He states one of his family member has had a gastrointestinal illness with copious diarrhea but he has no similar symptoms. IN ED last, febrile to 102.Workup in the ED early this morning as significant only leukocytosis of 14.8. Urinalysis unremarkable. CT abdomen/ pelvis without any acute intra abdominal abnormality which showing punctate nonobstructive calculi and scattered left colonic diverticula without diverticulitis. Preliminary blood culture results x1 grew Gram-negative rods. As a result, heD for further workup. On arrival, vital signs stable. Again has leukocytosis of 14.4. Renal function normal, electrolyte levels within normal limits overall. Urinalysis unremarkable except for 1+ leukocytes, negative bacteria. Urine culture pending. Repeat chest x-ray again negative for an acue cardiopulmonary abnormality. Negative for COVID-19, influenza. In the ED, treated with IV cefepime. Review of Systems Review of Systems: General: No malaise, unintentional weight loss. +fevers HEENT: No blurred vision, diplopia. No sore throat, nasal congestion, rhinorrhea, sinus pain, ear pain Cardiovascular: No chest pain, palpitations, or leg edema Respiratory: No shortness of breath, wheezing, cough GI: No abdominal pain, nausea, vomiting, diarrhea, constipation, melena, hematochezia : No dysuria, hematuria, increased urinary frequency, decreased urinary output MSK: No myalgia, back pain Neuro: No headaches, weakness, paresthesias Skin: No rashes or lesions PMFSH Medical History Cigarette nicotine dependence Hyperlipidemia Family History Father Stroke Mother No problems noted. Brother No problems noted. Sister Lung cancer Surgical History H/O basal cell carcinoma excision History of eye surgery Social History Housing: House Alcohol intake: never Patient Tobacco Use Status: Current everyday Tobacco user Tobacco use type: Cigarette Cigarettes Per Day: 10 Smoked in Last 30 Days: Yes e-Cigarette/Vaping Use: Never Used Second Hand Smoke Exposure: Yes Use of substances other than those prescribed or required for medical reasons: No Advance Directives: No Advance Directives Information Provided: No service: No Current occupational status: retired Current occupational exposures/hazards: No Cognitive needs: No Hearing needs: No Vision needs: Yes Meds Allergies Allergy/AdvReac Type Severity Reaction Status Date / Time No Known Allergies Allergy Verified 09/13/22 15:04 Active Medications: Current Medications Pharmacy Consult (Consult Rx Perform Med Rec) 1 each MISCELLANE ONCE PRN PRN Reason: Consult order Home Medications Medication Instructions Recorded Confirmed Last Taken Type cholecalciferol (vitamin D3) 25 25 mcg PO DAILY 06/29/20 09/13/22 Unknown History mcg (1,000 unit) capsule multivitamin 1 tab PO DAILY 10/27/20 09/13/22 Unknown History Physical Exam Vital Signs and Narrative: Vital Signs: Last Vital Signs Temp 98.2 F 09/13/22 17:38 Pulse 73 09/13/22 19:04 Resp 20 09/13/22 19:04 BP 125/69 09/13/22 19:04 Pulse Ox 98 09/13/22 19:04 O2 Del Method Room Air 09/13/22 19:04 BMI result Body Mass Index 20.9 Constitutional - Awake and Alert, No apparent distress Eyes - PERRLA, EOMI Neck -supple, no nuchal rigidity Cardiovascular - S1S2, RRR, No edema Respiratory - Normal lung expansion, Normal respiratory effort, No respiratory distress, Bibasilar crackles Gastrointestinal - NT / ND; +BS; No rebound or guarding Extremities - no calf tenderness bilaterally, no swelling Skin - Warm/Dry Neurological - Alert & oriented x3, CN II-XII in tact, 5/5 strength BUE and BLE Psychological - Appropriate affect Results Labs 09/13/22 16:00 09/13/22 16:00 Labs: Laboratory Results - last 24 hr 09/13/22 09/13/22 09/13/22 16:00 16:00 16:00 MCV 92.2 MCH 30.7 MCHC 33.2 RDW 13.0 Plt Count 182 MPV 10.3 Immature Gran % (Auto) 0.6 H Neut % (Auto) 82.0 H Lymph % (Auto) 8.2 L [place] % (Auto) 8.0 Eos % (Auto) 0.8 Baso % (Auto) 0.4 Lymph # (Auto) 1.2 [place] # (Auto) 1.2 Eos # (Auto) 0.1 Baso # (Auto) 0.1 Abs Immat Gran (auto) 0.09 H Absolute Neuts (auto) 11.8 H Absolute Nucleated RBC 0.000 Nucleated RBC % (auto) 0.0 Anion Gap Estim Creat Clear Calc Estimated GFR Random Glucose Lactic Acid 0.9 Calcium Magnesium Total Bilirubin AST ALT Alkaline Phosphatase Total Protein Albumin Urine Color Urine Appearance Urine pH Ur Specific [place] Urine Protein Urine Glucose (UA) Urine Ketones Urine Blood Urine Nitrite Ur Leukocyte Esterase Urine RBC Urine WBC Ur Squamous Epith Cells Urine Bacteria Hyaline Casts COVID-19 (TEZ) COVID-19 Clin Com Influenza Type A (SIS) Negative Influenza Type B (SIS) Negative Influenza A & B Note See Note 09/13/22 09/13/22 09/13/22 16:00 16:00 16:06 MCV MCH MCHC RDW Plt Count MPV Immature Gran % (Auto) Neut % (Auto) Lymph % (Auto) [place] % (Auto) Eos % (Auto) Baso % (Auto) Lymph # (Auto) [place] # (Auto) Eos # (Auto) Baso # (Auto) Abs Immat Gran (auto) Absolute Neuts (auto) Absolute Nucleated RBC Nucleated RBC % (auto) Anion Gap 12 Estim Creat Clear Calc 51.5 Estimated GFR > 60 Random Glucose 111 Lactic Acid Calcium 8.5 Magnesium 1.9 Total Bilirubin 0.5 AST 14 ALT 10 Alkaline Phosphatase 54 Total Protein 6.0 L Albumin 3.5 Urine Color Yellow Urine Appearance Clear Urine pH 5.0 Ur Specific [place] 1.015 Urine Protein Negative Urine Glucose (UA) Negative Urine Ketones Negative Urine Blood Negative Urine Nitrite Negative Ur Leukocyte Esterase Small (1+) H Urine RBC 0-2 Urine WBC 0-5 Ur Squamous Epith Cells 0-2 Urine Bacteria None Seen Hyaline Casts 0-2 COVID-19 (TEZ) Negative COVID-19 Clin Com See Note Influenza Type A (SIS) Influenza Type B (SIS) Influenza A & B Note Imaging Radiologist's Impressions: Impressions Chest X-Ray 09/13/22 15:40 IMPRESSION: -Trace blunting left lateral costophrenic angle. Otherwise no overt effusion. -No airspace consolidation or air bronchogram. Assessment and Plan (1) Fever of unknown origin: Status: Acute (2) Bacteremia: Status: Acute Plan 71-year-old male with history hyperlipidemia Who is a current 10-15 cigarettes per day smoker admitted for further evaluation and Management of gram negative bacteremia of unclear source. #Gram negative bacteremia- source unclear -1/2 preliminary cultures positive for Gram-negative rods -Febrile to 102 yesterday, resolved -UA with 1+ leuks, negative bacteria, UC pending. Pt asymptomatic -CXR negative. CT abd/pelvis negative. No n/v/d. No rashes/lesions. Chest CT pending - continue IV cefepime 2g every 8 hours ( initiated 09/13) - repeat cultures pending - follow CBC - appreciate ID input # hyperlipidemia - continue statin # cigarette smoker - declines NRT -Smoking cessation counseling provided DVT prophylaxis- lovenox Full code patient requires inpatient stay of at least 2 midnights for management of gram-negative bacteremia of unclear source requiring further investigation into etiology of bacteremia as well as IV antibiotics and expert consultation Time Spent With Patient Time: Total time managing care of this patient today ____ minutes. Quality Stroke Does the patient have a stroke diagnosis?: No VTE Prior VTE?: No VTE Risk Level:: Medical - moderate - high VTE Device Contraindication: Treatment Not Indicated VTE Drug Contraindication: N/A - Med Ordered
--- NOTE | 2022-09-13 20:42 | PC.NURSE ---
Report attempted at this time.
--- NOTE | 2022-09-13 20:46 | PC.NURSE ---
Report to S3 RN.
[2022-09-13] MEDS: Enoxaparin Sodium 40 MG/0.4 ML SYRINGE SUBCUT (21:47)
[2022-09-13] MEDS: 0.9 % Sodium Chloride Flush 3 ML SYRINGE IVFLUSH (21:49)
[2022-09-13 21:52] VITALS: BP 140/68; PULSE 97; RESP 20; TEMP 36.9; O2SAT 94
[2022-09-14] MEDS: cefEPime HCl 2 GM in 0.9 % Sodium Chloride 50 ML IV ×3 (01:51→18:13)
[2022-09-14] MEDS: Acetaminophen 325 MG TABLET 650 MG PO (03:10)
[2022-09-14 03:21] VITALS: BP 125/75; PULSE 79; RESP 16; TEMP 39.1; O2SAT 94
[2022-09-14 04:05] VITALS: TEMP 37.5
[2022-09-14 06:27] LABS: MANUAL DIFF FLAG NO
[2022-09-14 06:35] LABS: Basophils Absolute Auto 0.1 X10*3/uL (0.0-0.2); Basophils Percent Auto 0.7 % (0-2); Eosinophils Absolute Auto 0.1 X10*3/uL (0.0-0.4); Hematocrit 35.1 % (42.0-52.0); Hemoglobin 11.8 g/dl (14.0-18.0); Imm Gran Abs Auto 0.05 X10*3/uL (0.00-0.03); Imm Gran Pct Auto 0.6 % (0.0-0.4); Lymphocytes Absolute Auto 1.6 X10*3/uL (1.2-4.9); Lymphocytes Percent Auto 17.8 % (20-40); Mean Corpuscular HGB Conc 33.6 g/dl (31.0-36.0); Mean Corpuscular Hemoglobin 31.5 pg (27.0-33.0); Mean Corpuscular Volume 93.6 fL (80.0-98.0); Mean Platelet Volume 11.1 fL (9.4-12.4); Monocytes Absolute Auto 1.2 X10*3/uL (0.1-1.2); Monocytes Percent Auto 14.2 % (2-11); Neutrophils Absolute Auto 5.7 x10*3/uL (2.0-8.3); Neutrophils Percent Auto 65.7 % (45-73); Platelet Count 181 X10*3/uL (160-400); Red Blood Count 3.75 X10*6/uL (4.60-5.80); Red Cell Distribution Width 13.1 % (11.0-16.0); White Blood Count 8.7 X10*3/uL (4.8-10.8)
[2022-09-14 06:56] LABS: Anion Gap 12 (12-20); Blood Urea Nitrogen 19 mg/dL (9-16); Calcium 8.2 mg/dL (8.4-10.2); Carbon Dioxide 21 mmol/L (22-29); Chloride 110 mmol/L (96-108); Estimated Glomerular Filt Rate > 60; Glucose Random 104 mg/dL (60-115); Potassium 4.4 mmol/L (3.3-5.1); Sodium 139 mmol/L (135-145)
[2022-09-14 07:31] VITALS: BP 128/64; PULSE 78; RESP 18; TEMP 36.3; O2SAT 97
[2022-09-14] MEDS: Multivitamin TABLET 1 TAB PO (07:54)
[2022-09-14] MEDS: Pravastatin Sodium 20 MG TABLET PO (07:54)
[2022-09-14] MEDS: 0.9 % Sodium Chloride Flush 3 ML SYRINGE IVFLUSH ×3 (07:55→21:02)
[2022-09-14] MEDS: Cholecalciferol (Vitamin D3) 25 MCG TABLET PO (07:55)
--- NOTE | 2022-09-14 10:24 | P.PNIM_ITS ---
Subjective Subjective Date of Service: 09/14/22 Interval History: gram negative bacteremia Review of Systems Denies any new symptoms, overnight had fever of 102. Physical Exam Vital Signs: Vital Signs: Last Vital Signs Temp 97.4 F 09/14/22 07:31 Pulse 78 09/14/22 07:31 Resp 18 09/14/22 07:31 BP 128/64 09/14/22 07:31 Pulse Ox 97 09/14/22 07:31 O2 Del Method Room Air 09/14/22 07:31 BMI result Body Mass Index 20.9 Appearance: Alert.? Oriented X3.? not in distress.? cvs: rrr, [id number]. res: clear to auscultation ,no rhonchii or wheezing abd: no rebound or guarding ,nt, bs present. ext pulses present , no cyanosis. neuro: axo3 , nonfocal. Objective Data Active Medications Acetaminophen (Acetaminophen 325 Mg Tablet) 650 mg PO Q6H PRN PRN Reason: Pain, Mild (Pain Scale 1-3) Last Admin: 09/14/22 03:10 Dose: 650 mg Documented By: PHILIPP Docusate Sodium (Docusate Sodium 100 Mg Capsule) 100 mg PO DAILY PRN PRN Reason: Constipation Enoxaparin Sodium (Enoxaparin Sodium 40 Mg/0.4 Ml Syringe) 40 mg SUBCUT Q24H [facility] Last Admin: 09/13/22 21:47 Dose: 40 mg Documented By: PHILIPP Cefepime HCl 2 gm/ Sodium (Chloride) 50 mls @ 100 mls/hr IV Q8H [facility] Last Infusion: 09/14/22 09:55 Dose: 0 mls/hr Documented By: MITRA Multivitamins/Vitamin C (Multivitamin Tablet) 1 tab PO DAILY [facility] Last Admin: 09/14/22 07:54 Dose: 1 tab Documented By: MITRA Ondansetron HCl (Ondansetron Hcl 4 Mg/2 Ml Vial) 4 mg IVPUSH Q8H PRN PRN Reason: Nausea and Vomiting Pharmacy Consult (Consult Rx Perform Med Rec) 1 each MISCELLANE ONCE PRN PRN Reason: Consult order Pravastatin Sodium (Pravastatin Sodium 20 Mg Tablet) 20 mg PO DAILY [facility] Last Admin: 09/14/22 07:54 Dose: 20 mg Documented By: MITRA Sodium Chloride (0.9 % Sodium Chloride Flush 3 Ml Syringe) 3 ml IVFLUSH QSHIFT [facility] Last Admin: 09/14/22 07:55 Dose: 3 ml Documented By: MITRA Vitamin D (Cholecalciferol (Vitamin D3) 25 Mcg Tablet) 25 mcg PO DAILY [facility] Last Admin: 09/14/22 07:55 Dose: 25 mcg Documented By: MITRA Labs 09/14/22 05:42 09/14/22 05:42 Labs: Laboratory Results - last 24 hr 09/13/22 09/13/22 09/13/22 16:00 16:00 16:00 MCV 92.2 MCH 30.7 MCHC 33.2 RDW 13.0 Plt Count 182 MPV 10.3 Immature Gran % (Auto) 0.6 H Neut % (Auto) 82.0 H Lymph % (Auto) 8.2 L [place] % (Auto) 8.0 Eos % (Auto) 0.8 Baso % (Auto) 0.4 Lymph # (Auto) 1.2 [place] # (Auto) 1.2 Eos # (Auto) 0.1 Baso # (Auto) 0.1 Abs Immat Gran (auto) 0.09 H Absolute Neuts (auto) 11.8 H Absolute Nucleated RBC 0.000 Nucleated RBC % (auto) 0.0 Anion Gap Estim Creat Clear Calc Estimated GFR Random Glucose Lactic Acid 0.9 Calcium Magnesium Total Bilirubin AST ALT Alkaline Phosphatase Total Protein Albumin Urine Color Urine Appearance Urine pH Ur Specific [place] Urine Protein Urine Glucose (UA) Urine Ketones Urine Blood Urine Nitrite Ur Leukocyte Esterase Urine RBC Urine WBC Ur Squamous Epith Cells Urine Bacteria Hyaline Casts COVID-19 (TEZ) COVID-19 Clin Com Influenza Type A (SIS) Negative Influenza Type B (SIS) Negative Influenza A & B Note See Note 09/13/22 09/13/22 09/13/22 16:00 16:00 16:06 MCV MCH MCHC RDW Plt Count MPV Immature Gran % (Auto) Neut % (Auto) Lymph % (Auto) [place] % (Auto) Eos % (Auto) Baso % (Auto) Lymph # (Auto) [place] # (Auto) Eos # (Auto) Baso # (Auto) Abs Immat Gran (auto) Absolute Neuts (auto) Absolute Nucleated RBC Nucleated RBC % (auto) Anion Gap 12 Estim Creat Clear Calc 51.5 Estimated GFR > 60 Random Glucose 111 Lactic Acid Calcium 8.5 Magnesium 1.9 Total Bilirubin 0.5 AST 14 ALT 10 Alkaline Phosphatase 54 Total Protein 6.0 L Albumin 3.5 Urine Color Yellow Urine Appearance Clear Urine pH 5.0 Ur Specific [place] 1.015 Urine Protein Negative Urine Glucose (UA) Negative Urine Ketones Negative Urine Blood Negative Urine Nitrite Negative Ur Leukocyte Esterase Small (1+) H Urine RBC 0-2 Urine WBC 0-5 Ur Squamous Epith Cells 0-2 Urine Bacteria None Seen Hyaline Casts 0-2 COVID-19 (TEZ) Negative COVID-19 Clin Com See Note Influenza Type A (SIS) Influenza Type B (SIS) Influenza A & B Note 09/14/22 09/14/22 05:42 05:42 MCV 93.6 MCH 31.5 MCHC 33.6 RDW 13.1 Plt Count 181 MPV 11.1 Immature Gran % (Auto) 0.6 H Neut % (Auto) 65.7 Lymph % (Auto) 17.8 L [place] % (Auto) 14.2 H Eos % (Auto) 1.0 Baso % (Auto) 0.7 Lymph # (Auto) 1.6 [place] # (Auto) 1.2 Eos # (Auto) 0.1 Baso # (Auto) 0.1 Abs Immat Gran (auto) 0.05 H Absolute Neuts (auto) 5.7 Absolute Nucleated RBC 0.000 Nucleated RBC % (auto) 0.0 Anion Gap 12 Estim Creat Clear Calc 48.0 Estimated GFR > 60 Random Glucose 104 Lactic Acid Calcium 8.2 L Magnesium Total Bilirubin AST ALT Alkaline Phosphatase Total Protein Albumin Urine Color Urine Appearance Urine pH Ur Specific [place] Urine Protein Urine Glucose (UA) Urine Ketones Urine Blood Urine Nitrite Ur Leukocyte Esterase Urine RBC Urine WBC Ur Squamous Epith Cells Urine Bacteria Hyaline Casts COVID-19 (TEZ) COVID-19 Clin Com Influenza Type A (SIS) Influenza Type B (SIS) Influenza A & B Note Assessment and Plan (1) Fever of unknown origin: Status: Acute (2) Bacteremia: Status: Acute (3) Gram-negative bacteremia: Status: Acute Plan 71-year-old male with history hyperlipidemia Who is a current 10-15 cigarettes per day smoker admitted for further evaluation and ? Management of gram negative bacteremia of unclear source. possible Gram negative bacteremia- source unclear-/2? preliminary cultures positive for Gram-negative rods Febrile to 102 x1 episode overnight UA with 1+ leuks, negative bacteria, UC pending,as well as blood culture -gram neg ghazala identification pending . CXR negative. CT abd/pelvis negative. No n/v/d. No rashes/lesions. Chest CT- seems fine ,atelactasis. Pt asymptomatic continue IV cefepime 2g every 8 hours? ( initiated 09/13),tyelnol prn for fevers, appreciate ID input. hyperlipidemia- continue? statin cigarette smoker- declines NRT -Smoking cessation counseling provided DVT prophylaxis- lovenox Full code inaptient need: fuo/gram neg bactermia -need iv antibiotics ,gram neg ghazala id entification pending,Id eval. Time Spent With Patient Time: Total time managing care of this patient today ____ minutes. Quality Stroke Does the patient have a stroke diagnosis?: No VTE Prior VTE?: No VTE Risk Level:: Medical - moderate - high VTE Device Contraindication: Treatment Not Indicated VTE Drug Contraindication: N/A - Med Ordered
--- NOTE | 2022-09-14 12:33 | MHC.CM.PN ---
Addendum entered by Sudha Farnsworth 09/15/22 10:47: HCP WAS COMPLETED AND NOW IN CHART Original Note: PATIENT LIVES WITH HIS /NEW HCP NO DME OR VNA NO SERVICES IN THE HOME. HE IS HOPING TO DC HOME WITH NO NEED FOR SERVICES HE SAYS THAT IF HE NEEDS IV ABX AT DC, HE WANTS TO BE ABLE TO GO HOME NEW HCP TO BE COMPLETED AND PLACED IN CHART IMM 4/5 IN CHART
[2022-09-14 14:48] LABS: Adenovirus PCR Not Detected (Not Detect.); Bordetella parapertussis PCR Not Detected (Not Detect.); Bordetella pertussis PCR Not Detected (Not Detect.); Chlamydia pneumoniae PCR Not Detected (Not Detect.); Coronavirus 229E PCR Not Detected (Not Detect.); Coronavirus HKU1 PCR Not Detected (Not Detect.); Coronavirus NL63 PCR Not Detected (Not Detect.); Coronavirus OC43 PCR Not Detected (Not Detect.); Human metapneumovirus PCR Not Detected (Not Detect.); Influenza A PCR Not Detected (Not Detect.); Influenza B PCR Not Detected (Not Detect.); Mycoplasma pneumoniae PCR Not Detected (Not Detect.); Parainfluenza 1 PCR Not Detected (Not Detect.); Parainfluenza 2 PCR Not Detected (Not Detect.); Parainfluenza 3 PCR Not Detected (Not Detect.); Parainfluenza 4 PCR Not Detected (Not Detect.); RSV PCR Not Detected (Not Detect.); Rhino/Enterovirus PCR Not Detected (Not Detect.); SARS-CoV-2 PCR Not Detected (Not Detect.)
[2022-09-14 15:30] VITALS: BP 130/65; PULSE 81; RESP 18; TEMP 36.4; O2SAT 96
--- NOTE | 2022-09-14 16:47 | W.PM.IDCN ---
History of Present Illness Data of Consult Service Date: 09/14/22 Requesting physician: Hanny Gastelum Primary Care Provider: Ignacio Ballard MD HPI Reason for consult: gram negative bacteremia He presents with shaking chills and temperature to 102 to ER and cough 4/4. He had blood cultures drawn and had gram negative rods identified. He has no diarrhea or travel or exposure to animals such as snakes or chickens. He has CT scan chest no focal involvement. Review of Systems Review of Systems: Yes all other systems are reviewed and are negative PMFSH Past Medical History Medical History Cigarette nicotine dependence Hyperlipidemia Family History Family History Father Stroke Mother No problems noted. Brother No problems noted. Sister Lung cancer Family history: reviewed and not pertinent Surgical History Surgical History H/O basal cell carcinoma excision History of eye surgery Social History Social History Household Members: Spouse Housing: Apartment Do you presently have visiting nurse or other home services: No Alcohol intake: never Patient Tobacco Use Status: Current everyday Tobacco user Tobacco use type: Cigarette Cigarettes Per Day: 10 e-Cigarette/Vaping Use: Never Used Second Hand Smoke Exposure: Yes service: No Current occupational status: retired Current occupational exposures/hazards: No Cognitive needs: No Hearing needs: No Vision needs: Yes Meds Allergies Allergy/AdvReac Type Severity Reaction Status Date / Time No Known Allergies Allergy Verified 09/13/22 15:04 Active Medications: Current Medications Acetaminophen (Acetaminophen 325 Mg Tablet) 650 mg PO Q6H PRN PRN Reason: Pain, Mild (Pain Scale 1-3) Last Admin: 09/14/22 03:10 Dose: 650 mg Docusate Sodium (Docusate Sodium 100 Mg Capsule) 100 mg PO DAILY PRN PRN Reason: Constipation Enoxaparin Sodium (Enoxaparin Sodium 40 Mg/0.4 Ml Syringe) 40 mg SUBCUT Q24H [facility] Last Admin: 09/13/22 21:47 Dose: 40 mg Cefepime HCl 2 gm/ Sodium (Chloride) 50 mls @ 100 mls/hr IV Q8H [facility] Last Infusion: 09/14/22 09:55 Dose: Infused Multivitamins/Vitamin C (Multivitamin Tablet) 1 tab PO DAILY [facility] Last Admin: 09/14/22 07:54 Dose: 1 tab Ondansetron HCl (Ondansetron Hcl 4 Mg/2 Ml Vial) 4 mg IVPUSH Q8H PRN PRN Reason: Nausea and Vomiting Pharmacy Consult (Consult Rx Perform Med Rec) 1 each MISCELLANE ONCE PRN PRN Reason: Consult order Pravastatin Sodium (Pravastatin Sodium 20 Mg Tablet) 20 mg PO DAILY [facility] Last Admin: 09/14/22 07:54 Dose: 20 mg Sodium Chloride (0.9 % Sodium Chloride Flush 3 Ml Syringe) 3 ml IVFLUSH QSHIFT [facility] Last Admin: 09/14/22 16:24 Dose: 3 ml Vitamin D (Cholecalciferol (Vitamin D3) 25 Mcg Tablet) 25 mcg PO DAILY [facility] Last Admin: 09/14/22 07:55 Dose: 25 mcg Home Medications Medication Instructions Recorded Confirmed Last Taken Type cholecalciferol (vitamin D3) 25 25 mcg PO DAILY 06/29/20 09/13/22 Unknown History mcg (1,000 unit) capsule multivitamin 1 tab PO DAILY 10/27/20 09/13/22 Unknown History Physical Exam Vital Signs: Vital Signs: Last Vital Signs Temp 97.5 F 09/14/22 15:30 Pulse 81 09/14/22 15:30 Resp 18 09/14/22 15:30 BP 130/65 09/14/22 15:30 Pulse Ox 96 09/14/22 15:30 O2 Del Method Room Air 09/14/22 15:30 BMI result Body Mass Index 20.9 Const: General: cooperative HEENT: Head: Yes normal to inspection Face and sinus: Yes normal facial exam Mouth: Normal oral and palatal mucosa present Teeth and gingiva: dentition normal Eyes: General: appearance normal, both eyes and all related structures Pupils: Equal, round and reactive pupils present Resp: Effort & Inspection: normal respiratory effort Cardio: Rate: regular rate Rhythm: regular rhythm GI: Palpation (GI): Soft to palpation and nontender : General: Yes no CVA tenderness Back/Spine/Pelvis: Back: no CVA tenderness Skin: General skin exam: no rashes or lesions noted Neuro: General: moves all extremities Cranial nerves: Yes Equal, round and reactive pupils present Extrem: General: Yes normal to inspection Psych: Appearance: grossly normal Results Labs 09/14/22 05:42 09/14/22 05:42 Labs: Short CBC 09/14/22 Range/Units 05:42 WBC 8.7 (4.8-10.8) X10*3/uL Hgb 11.8 L (14.0-18.0) g/dl Hct 35.1 L (42.0-52.0) % Plt Count 181 (160-400) X10*3/uL BMP 09/14/22 05:42 Sodium 139 Potassium 4.4 Chloride 110 H Carbon Dioxide 21 L BUN 19 H Creatinine 1.16 Calcium 8.2 L Microbiology Microbiology Results: Microbiology 09/13/22 16:40 Urine clean catch - Urine [place] Urine Culture - Preliminary No growth to date. Assessment and Plan (1) Gram-negative bacteremia: Status: Acute He has possible abdominal source or prostate likely He has no diarrhea so unlikely salmonella or shigella. He has no known exposure. (2) Fever of unknown origin: Status: Acute Plan Continue Cefepime or Ceftriaxone Await final culture. Check CT scan abdomen and pelvis. Time Spent With Patient Time: Total time managing care of this patient today ____ minutes.
[2022-09-14 19:19] VITALS: BP 131/66; PULSE 77; RESP 16; TEMP 36.8; O2SAT 95
[2022-09-14] MEDS: Enoxaparin Sodium 40 MG/0.4 ML SYRINGE SUBCUT (21:01)
[2022-09-15] MEDS: cefEPime HCl 2 GM in 0.9 % Sodium Chloride 50 ML IV ×2 (01:54→09:35)
[2022-09-15 03:49] VITALS: BP 128/72; PULSE 70; RESP 18; TEMP 36.9; O2SAT 95
[2022-09-15 07:17] VITALS: BP 148/77; PULSE 79; RESP 18; TEMP 36.5; O2SAT 95
[2022-09-15] MEDS: Pravastatin Sodium 20 MG TABLET PO (07:48)
[2022-09-15] MEDS: Multivitamin TABLET 1 TAB PO (07:48)
[2022-09-15] MEDS: 0.9 % Sodium Chloride Flush 3 ML SYRINGE IVFLUSH (07:48)
[2022-09-15] MEDS: Cholecalciferol (Vitamin D3) 25 MCG TABLET PO (07:48)
--- NOTE | 2022-09-15 10:38 | PM.DS ---
DS: Providers Provider Date of Service: 09/15/22 Date of admission: 09/13/22 19:35 Primary care physician: Ignacio Ballard MD Consults: 09/13/22 19:54 Consult to Infectious Diseases Routine Consulting [place] [facility] [place] Reason for consultation: gram negative bacteremia, unclear source DS: Diagnosis Discharge Diagnosis (1) Gram-negative bacteremia: Status: Acute (2) Fever of unknown origin: Status: Acute DS: Summary Hospital Course Hospital Course: 71-year-old male with history hyperlipidemia Who is a current 10-15 cigarettes per day smoker presented to the ED earlier today after being called by our staff to return for further evaluation of a Gram-negative bacteremia.? last night, the patient developed high fevers though he did not check his temperature.? There was associated shakes and sweats.? He denies any other associated symptoms including sore throat, congestion, abdominal pain, nausea, vomiting,? diarrhea, cough, dysuria, hematuria, increased urinary frequency, shortness of breath, lightheadedness, headaches, or chest pain. Denies recent illness. He states one of his family member has had a gastrointestinal illness with copious diarrhea but he has no similar symptoms. IN ED last, febrile to 102.Workup in the ED early this morning as significant only? leukocytosis of 14.8.? Urinalysis unremarkable.? CT abdomen/ pelvis without any acute intra abdominal abnormality which showing punctate nonobstructive calculi and scattered left colonic diverticula without diverticulitis.? Preliminary blood culture results x1 grew Gram-negative rods.? As a result, heD for further workup.? On arrival, vital signs stable.? Again has leukocytosis of 14.4.? Renal function normal, electrolyte levels within normal limits overall.? Urinalysis unremarkable except for 1+ leukocytes, negative bacteria.? Urine culture pending.? Repeat chest x-ray again negative for an acue? cardiopulmonary abnormality.? Negative for COVID-19, influenza.? In the ED, treated with IV cefepime. Hospital course: Patient was admitted for because of gram-negative bacteremia: Patient was started on IV antibiotics, blood cultures sent also CT abdomen and chest was done: Grossly fine except CT abdomen has Punctate nonobstructive calculus, left kidney-Found to have E coli which is sensitive to Ceftin, repeat blood culture preliminary negative , no fever, leukocytosis resolved. Discussed with infectious disease probably has bacteremia(possible Suspicious renal stone ). patient will be going home with po antibiotics 2 weeks , patient was advised to follow up outpatient with Urology as per PCP. Above management discussed with the patient in detail length she understand and in agreement with the above plan, time spent 50 minutes and 50% time spent on counseling. Time Spent with Patient Time attestation: Total time managing care of this patient today ____ minutes. Discharge coordination time: Greater than 30 minutes Quality: Safe Use of Opioids Does Pt have an Active Cancer Diagnosis on the Problem List?: No Quality: Stroke Does the patient have a stroke diagnosis?: No Physical Exam Vital Signs: Vital Signs: Last Vital Signs Temp 97.7 F 09/15/22 07:17 Pulse 79 09/15/22 07:17 Resp 18 09/15/22 07:17 BP 148/77 H 09/15/22 07:17 Pulse Ox 95 09/15/22 07:17 O2 Del Method Room Air 09/15/22 07:17 BMI result Body Mass Index 20.9 Appearance: Alert.? Oriented X3.? not in distress.? cvs: rrr, [id number] , no murmur res: clear to auscultation ,no rhonchii or wheezing abd: no rebound or guarding ,nt, bs present. ext pulses present , no cyanosis . neuro: axo3 , nonfocal. DS: Data Data Completed and Pending Labs on day of discharge: Laboratory Results - last 24 hr 09/14/22 12:30 Respiratory Panel Simeon See Note Adenovirus (Rapid PCR) Not Detected B.pert (TEM-PCR) Not Detected B.parapertussis DNA PCR Not Detected C. pneumoniae DNA (PCR) Not Detected Coronavirus OC43 (PCR) Not Detected Coronavirus HKU1 (PCR) Not Detected Coronavirus 229E (PCR) Not Detected Coronavirus NL63 (PCR) Not Detected Human Metapneumovir PCR Not Detected Influenza A (RT-PCR) Not Detected Influenza B (RT-PCR) Not Detected M. pneumoniae (PCR) Not Detected Parainfluenza 1 (PCR) Not Detected Parainfluenza 2 (PCR) Not Detected Parainfluenza 3 (PCR) Not Detected Parainfluenza 4 (PCR) Not Detected RSV (PCR) Not Detected Entero/Rhino (PCR) Not Detected SARS-CoV-2 RNA (RT-PCR) Not Detected Preliminary micro results at discharge 09/13/22 16:00 Blood Culture - Preliminary Blood - Venous No growth after 24 hours. 09/13/22 16:00 Blood Culture - Preliminary Blood - Venous No growth after 24 hours. 09/13/22 16:40 Urine Culture - Preliminary Urine clean catch - Urine [place] top No growth to date. Imaging Chest x-ray: Radiologist's impression: ITS Impressions Chest X-Ray 09/13/22 15:40 IMPRESSION: -Trace blunting left lateral costophrenic angle. Otherwise no overt effusion. -No airspace consolidation or air bronchogram. Chest CT 09/13/22 20:30 IMPRESSION: 1. A cause for the patient's shortness of breath has not been found. 2. No evidence of pneumonia. 3. Incidental note made of extensive triple-vessel coronary calcifications, unchanged 3 mm pulmonary nodule and degenerative changes in the spine. Fleischner guidelines were followed. Discharge Plan Discharge Anticipated Discharge Date/Time: 09/15/22 10:27 Patient Disposition: Home, Self-Care Discharge Diagnosis: E coli bacteremia-possible urinary/renal stone concern Referrals: Ignacio Ballard MD [Primary Care Provider] - 1 Week Discharge Medications: New cefuroxime axetil 500 mg tablet 500 mg PO BID Qty: 26 0RF Continued pravastatin 20 mg tablet 20 mg PO DAILY Qty: 90 3RF cholecalciferol (vitamin D3) 25 mcg (1,000 unit) capsule 25 mcg PO DAILY multivitamin Tablet 1 tab PO DAILY Discharge Orders: Discharge Order (Routine); Ordered 09/15/22 Ordered By: Hanny Gastelum Diet: Advance to usual diet Activity on Discharge: As tolerated Stand Alone Forms: Patient Portal Discharge page Care Plan Goals: Patient was admitted for because of gram-negative bacteremia: Patient was started on IV antibiotics, blood cultures sent also CT abdomen and chest was done: Grossly fine except CT abdomen has Punctate nonobstructive calculus, left kidney-Found to have E coli which is sensitive to Ceftin, repeat blood culture preliminary negative , no fever, leukocytosis resolved. Discussed with infectious disease probably has bacteremia(possible Suspicious renal stone ). patient will be going home with po antibiotics 2 weeks , patient was advised to follow up outpatient with Urology as per PCP. Health Concerns: As above. Plan of Treatment: As above. Assessment: As above. Patient Instructions: Kidney Stones (DC), Bacteremia (DC)
--- NOTE | 2022-09-15 10:48 | MHC.CM.PN ---
PT WILL DC HOME TODAY WITH NO SERVICES TO TRANSPORT
== END 2022-09-15 12:52 | disposition home or self-care (01) | DRG 694 ==
LOC: HO.ED 18:35 → HO.EDOVER 19:48 → HO.S3 20:29
PROVIDERS: Physician Assistant; Admitting Provider Physician Assistant; Emergency Provider Student in an Organized Health Care Education/Training Program; PCP Internal Medicine; Visit Provider Internal Medicine
DX: N20.0 Calculus of kidney (principal); R78.81 Bacteremia; E78.5 Hyperlipidemia, unspecified; B96.20 Unspecified Escherichia coli [E. coli] as the cause of diseases classified elsewhere; F17.210 Nicotine dependence, cigarettes, uncomplicated; Z71.6 Tobacco abuse counseling; Z20.822 Contact with and (suspected) exposure to COVID-19; Z79.899 Other long term (current) drug therapy
CPT/HCPCS: 36415; 71045; 71250; 80048; 80053; 81001; 83605; 83735; 85025; 87040; 87086; 87502; 87633; 87635; 93005; 99285; J0692; J1650

== ENCOUNTER 2022-10-03 13:36 | Outpatient (REF) | payer MEDICARE, SELFPAY | END 2022-10-03 13:37 | disposition home or self-care (01) | LOC: HO.HMGCLDS 13:36 | PROVIDERS: PCP Internal Medicine; Visit Provider Internal Medicine | DX: N39.0 Urinary tract infection, site not specified (principal) | CPT/HCPCS: 87086 ==

== ENCOUNTER 2022-10-18 06:39 | Outpatient (REF) | payer MEDICARE, SELFPAY ==
[2022-10-18 11:52] LABS: Cholesterol 191 mg/dL; HDL Cholesterol 36 mg/dL; LDL Cholesterol Calculated 130 mg/dl; Triglycerides 126 mg/dL
== END 2022-10-18 06:40 | disposition home or self-care (01) ==
LOC: HO.HMGCLDS 06:39
PROVIDERS: PCP Internal Medicine; Visit Provider Internal Medicine
DX: E78.5 Hyperlipidemia, unspecified (principal)
CPT/HCPCS: 36415; 80061

== ENCOUNTER 2023-05-03 07:43 | Outpatient (REF) | payer MEDICARE, SELFPAY ==
[2023-05-03 12:21] LABS: Cholesterol 192 mg/dL (<200); HDL Cholesterol 35 mg/dL (>40); LDL Cholesterol Calculated 133 mg/dL (<100); Triglycerides 123 mg/dL (<150)
== END 2023-05-03 07:44 | disposition home or self-care (01) ==
LOC: HO.HMGCLDS 07:43
PROVIDERS: PCP Internal Medicine; Visit Provider Internal Medicine
DX: E78.5 Hyperlipidemia, unspecified (principal)
CPT/HCPCS: 36415; 80061

== ENCOUNTER 2023-05-08 13:16 | Outpatient (AMB) | payer MEDICARE, SELFPAY ==
--- NOTE | 2023-05-08 13:25 | A.OFFPC_ITS ---
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: Not Required per policy Accompanied by: Self / Same As Patient Allergies No Known Allergies Allergy (Verified 05/08/23 13:26) Medication List - Last Reconciled 05/08/23 by Ignacio Ballard MD cholecalciferol (vitamin D3) 25 mcg PO DAILY multivitamin 1 tab PO DAILY pravastatin 20 mg PO DAILY Tobacco use date assessed: 11/01/22 Fall risk assessment: No Falls in past year Last assessed Fall Risk: 05/08/23 Dental Screening Dental Screen Date: 05/08/23 Did you have a dental visit in the last 12 months?: No Did you have a dental problem in the last 6 months where you did not have access to dental care?: No Was dental information given to patient?: Patient has dentist HPI Annual Physical HPI Details hyperlip on rx; doing well PFSH Medical History Cigarette nicotine dependence Hyperlipidemia Surgical History History of eye surgery H/O basal cell carcinoma excision Family History Father Stroke Mother No problems noted. Brother No problems noted. Sister Lung cancer Household Members: Spouse Housing: Apartment Do you presently have visiting nurse or other home services: No Alcohol intake: never Patient Tobacco Use Status: Current everyday Tobacco user Tobacco use type: Cigarette Cigarettes Per Day: 10 e-Cigarette/Vaping Use: Never Used Second Hand Smoke Exposure: Yes service: No Current occupational status: retired Current occupational exposures/hazards: No Cognitive needs: No Hearing needs: No Vision needs: Yes Questionnaire Thrive Questionnaire Date Thrive assessed: 09/20/22 LOUIS-7 AMB Questionnaire LOUIS-7 Date LOUIS - 7 assessed: 09/20/22 Source: Developed by Drs. Nikita Lee, Liz BBeau Hall and colleagues, with an educational trevor from [employer]. Review of Systems Const Denies chills, Denies fatigue, Denies headache(s) and Denies weight loss Eyes Denies change in vision, Denies diplopia and Denies eye pain ENT Denies vertigo, Denies dizziness, Denies headache(s) and Denies nasal discharge Card Denies chest pain, Denies rapid heart rate and Denies dyspnea on exertion Resp Denies chest congestion, Denies cough, Denies pain with cough and Denies dyspnea on exertion GI Denies abdominal pain, Denies hematochezia and Denies change in bowel habits Musc Denies myalgias, Denies arthralgias and Denies joint swelling Skin/Breast Denies lesions and Denies unusual bruising Neuro Denies vertigo, Denies dizziness, Denies headache(s) and Denies focal weakness Endo Denies fatigue Physical exam (Primary Care) Vital Signs: Last Vital Signs Pulse 78 05/08/23 13:26 BP 142/78 H 05/08/23 13:26 Pulse Ox 98 05/08/23 13:26 Oxygen Delivery Method Room Air 05/08/23 13:26 BMI result Body Mass Index 20.3 Tobacco/Smoking Status: Tobacco use Status Tobacco use date assessed 11/01/22 05/08/23 13:31 Patient Tobacco Use Status Current everyday Tobacco 05/08/23 13:31 Tobacco use type Cigarette 05/08/23 13:31 e-Cigarette/Vaping Use Never Used 05/08/23 13:31 Are you ready to quit: No Tobacco cessation counseling provided: Yes Number of minutes spent counselin CPT code: 61255 - 4-10 Minutes Thrive Assessment: Date of Thrive Assessment Date Thrive assessed 09/20/22 05/08/23 13:31 Advance Care Planning discussion: On file, no changes Forms completed: Health Care Proxy Const General: cooperative, healthy appearing and no acute distress Orientation/consciousness: oriented to person, oriented to place and oriented to time [facility] Head: Yes normal to inspection, Yes normocephalic and Yes atraumatic Mouth: Normal oral and palatal mucosa present and tongue normal Throat: Yes posterior oropharynx normal and Yes uvula midline Eyes General: appearance normal, both eyes and all related structures Neck Neck: Yes normal visual inspection, Yes full ROM and Yes no lymphadenopathy Thyroid: Thyroid normal Carotids: normal carotid upstroke Chest Chest palpation & inspection: normal inspection of the chest Resp Effort & Inspection: normal respiratory effort and able to speak in complete sentences Auscultation: clear to auscultation bilaterally Cardio Jugular venous distension: no JVD Palpation: normal PMI Rate: regular rate Rhythm: regular rhythm Heart sounds: S1 normal heart sound present and S2 normal heart sound present GI Inspection: Yes normal to inspection Palpation (GI): Soft to palpation and No hepatosplenomegaly present Auscultation: normal bowel sounds General: Yes no CVA tenderness Back/Spine/Pelvis Back: no CVA tenderness Skin General skin exam: no rashes or lesions noted Neuro General: oriented to person, oriented to place and oriented to time Extrem General: Yes normal to inspection and Yes full ROM Assessment and Plan Assessment & Plan (1) Physical exam: Code(s): Z00.00 - Encounter for general adult medical examination without abnormal findings Plan: stable (2) Hyperlipidemia: Code(s): E78.5 - Hyperlipidemia, unspecified Plan: labs Orders: Orders Lipid Panel Today E78.5 - Hyperlipidemia, unspecified Referrals Speech and Hearing Referral H91.90 - Unspecified hearing loss, unspecified ear Coding Level of Care Code Est Pt Prev Care >65y(47071) Diagnoses Physical exam Z00.00 Hyperlipidemia E78.5 Additional Codes Vital Signs *Quality* - CPT code: 08281 - 4-10 Minutes ([id number]) Vital Signs *Quality* - Advance Care Planning discussion: On file, no changes ([id number])
[2023-05-08 13:26] VITALS: BP 142/78; PULSE 78; O2SAT 98; BMI 20.3
== END 2023-05-08 14:02 | disposition home or self-care (01) ==
PROVIDERS: Visit Provider Internal Medicine
DX: Z00.00 Encounter for general adult medical examination without abnormal findings (principal); E78.5 Hyperlipidemia, unspecified
CPT/HCPCS: 1123F; 99397

== ENCOUNTER 2023-11-29 07:54 | Outpatient (REF) | payer MEDICARE, SELFPAY ==
[2023-11-29 11:05] LABS: MANUAL DIFF FLAG NO
[2023-11-29 11:28] LABS: Basophils Absolute Auto 0.1 X10*3/uL (0.0-0.2); Basophils Percent Auto 0.6 % (0-2); Eosinophils Absolute Auto 0.3 X10*3/uL (0.0-0.4); Eosinophils Percent Auto 3.2 % (0-4); Hematocrit 45.5 % (42.0-52.0); Hemoglobin 15.1 g/dl (14.0-18.0); Imm Gran Abs Auto 0.03 X10*3/uL (0.00-0.03); Imm Gran Pct Auto 0.3 % (0.0-0.4); Lymphocytes Absolute Auto 2.7 X10*3/uL (1.2-4.9); Lymphocytes Percent Auto 26.6 % (20-40); Mean Corpuscular HGB Conc 33.2 g/dl (31.0-36.0); Mean Corpuscular Hemoglobin 31.9 pg (27.0-33.0); Mean Platelet Volume 10.9 fL (9.4-12.4); Monocytes Absolute Auto 0.9 X10*3/uL (0.1-1.2); Monocytes Percent Auto 8.8 % (2-11); Neutrophils Absolute Auto 6.2 x10*3/uL (2.0-8.3); Neutrophils Percent Auto 60.5 % (45-73); Platelet Count 272 X10*3/uL (160-400); Red Blood Count 4.74 X10*6/uL (4.60-5.80); Red Cell Distribution Width 12.9 % (11.0-16.0); White Blood Count 10.2 X10*3/uL (4.8-10.8)
[2023-11-29 11:59] LABS: Alanine Aminotransferase 10 U/L (0-40); Albumin Level 4.1 g/dL (3.5-5.0); Alkaline Phosphatase 56 U/L (39-117); Anion Gap 15 (12-20); Aspartate Amino Transferase 20 U/L (5-37); Bilirubin Total 0.5 mg/dL (0.0-1.0); Blood Urea Nitrogen 16 mg/dL (9-16); Calcium 9.5 mg/dL (8.4-10.2); Carbon Dioxide 24 mmol/L (22-29); Chloride 107 mmol/L (96-108); Cholesterol 181 mg/dL (<200); Estimated Glomerular Filt Rate > 60; Glucose Fasting 90 mg/dL (60-99); HDL Cholesterol 38 mg/dL (>40); LDL Cholesterol Calculated 115 mg/dL (<100); Potassium 4.5 mmol/L (3.3-5.1); Sodium 141 mmol/L (135-145); Total Protein 7.6 g/dL (6.5-8.0); Triglycerides 141 mg/dL (<150)
== END 2023-11-29 07:55 | disposition home or self-care (01) ==
LOC: HO.HMGCLDS 07:54
PROVIDERS: PCP Internal Medicine; Visit Provider Internal Medicine
DX: Z13.0 Encounter for screening for diseases of the blood and blood-forming organs and certain disorders involving the immune mechanism (principal); Z13.9 Encounter for screening, unspecified; Z13.220 Encounter for screening for lipoid disorders
CPT/HCPCS: 36415; 80053; 80061; 85025

== ENCOUNTER 2023-12-01 11:14 | Outpatient (AMB) | payer MEDICARE, SELFPAY ==
[2023-12-01 11:17] VITALS: BP 138/80; PULSE 78; O2SAT 97; BMI 19.9
--- NOTE | 2023-12-01 11:17 | A.OFFPC_ITS ---
Vital Signs 12/01/23 11:17 Height 5 ft 6 in Weight 123 lb 0.3 oz BMI 19.9 BP 138/80 Blood Pressure Location Lt brachial Position Sitting Pulse 78 Pulse Source Pulse Oximeter Pulse Oximetry (%) 97 Oxygen Delivery Method Room Air Intake Visit Reasons: F/U Endoscopy Specialty Technician Required: No Allergies No Known Allergies Allergy (Verified 12/01/23 11:17) Medication List - Last Reconciled 12/01/23 by Ignacio Ballard MD cholecalciferol (vitamin D3) 25 mcg PO DAILY multivitamin 1 tab PO DAILY pravastatin 20 mg PO DAILY Tobacco use date assessed: 12/01/23 Fall risk assessment: No Falls in past year Last assessed Fall Risk: 12/01/23 Dental Screening Dental Screen Date: 12/01/23 Did you have a dental visit in the last 12 months?: No Did you have a dental problem in the last 6 months where you did not have access to dental care?: No HPI F/U HPI Details hyperlipidemia on rx; doing well PFSH Medical History Cigarette nicotine dependence Hyperlipidemia Surgical History History of eye surgery H/O basal cell carcinoma excision Family History Father Stroke Mother No problems noted. Brother No problems noted. Sister Lung cancer Social History Household Members: Spouse Housing: Apartment Do you presently have visiting nurse or other home services: No Alcohol intake: never Patient Tobacco Use Status: Current everyday Tobacco user Tobacco use type: Cigarette Cigarettes Per Day: 10 e-Cigarette/Vaping Use: Never Used Second Hand Smoke Exposure: Yes service: No Current occupational status: retired Current occupational exposures/hazards: No Cognitive needs: No Hearing needs: No Vision needs: Yes Questionnaire PHQ-9 Over the last 2 weeks, how often have you been bothered by any of the following problems? 1. Little interest or pleasure in doing things: not at all 2. Feeling down, depressed, or hopeless: not at all 3. Trouble falling or staying asleep, or sleeping too much: not at all 4. Feeling tired or having little energy: not at all 5. Poor appetite or overeating: not at all 6. Feeling bad about yourself - or that you are a failure or have let yourself or your family down: not at all 7. Trouble concentrating on things, such as reading the newspaper or watching television: not at all 8. Moving or speaking so slowly that other people could have noticed. Or the opposite - being so fidgety or restless that you have been moving around a lot more than usual: not at all 9. Thoughts that you would be better off or of hurting yourself in some way: not at all Total score: 0 Depression Screening Interpretation: Negative Depression Screening Done: Yes 50549 - PHQ-9 Billing: Yes Source: Developed by Drs. Nikita Lee, Liz Hawkins, Beau Lauren and colleagues, with an educational trevor from [employer] Thrive Questionnaire Date Thrive assessed: 09/20/22 I am a: Patient What is your living situation today?: I have a steady place to live Within the past 12 months, did the food you bought not last and you didn't have the money to get more?: Never true Within the past 12 months, did you worry whether your food would run out before you got money to buy more?: Never true Do you have trouble paying for medicines?: No Do you have trouble getting transportation to medical appointments?: No Do you have trouble paying your heating and electricity bill?: No Do you have trouble taking care of your child, family member or friend?: No Do you have trouble with day-to-day activities such as bathing, preparing meals, shopping, managing finances, etc.?: No Are you currently unemployed and looking for a job?: No Are you interested in more education?: No Please select the resources that you would like help with: None Currently or been in a relationship where the following occur: no concerns reported THRIVE Score: 0 AUDIT C Alcohol Use Questionnaire (AUDIT-C) 1. How often do you have a drink containing alcohol?: Never Total Score: 0 Score Reviewed/Action Taken: Yes LOUIS-7 AMB Questionnaire LOUIS-7 Date LOUIS - 7 assessed: 12/01/23 Feeling nervous, anxious, or on edge: 0 = Not at all Not being able to stop or control worryin = Not at all Worrying too much about different things: 0 = Not at all Trouble relaxin = Not at all Being so restless that it is hard to sit still: 0 = Not at all Becoming easily annoyed or irritable: 0 = Not at all Feeling afraid as if something awful might happen: 0 = Not at all Total LOUIS-7 score (0-4 normal; 5-9 mild; 10-14 moderate; 15-21 severe): 0 Source: Developed by Drs. Nikita Lee, Liz Hawkins, Beau Lauren and colleagues, with an educational trevor from [employer] LOUIS-7 Assessment Billing LOUIS-7 Assessment Tool: LOUIS-7 Assessment 54918 Review of Systems Const Denies chills, Denies headache(s) and Denies weight loss ENT Denies headache(s) Card Denies chest pain, Denies syncope, Denies irregular heart rhythm and Denies dyspnea Resp Denies chest congestion, Denies cough and Denies dyspnea GI Denies abdominal pain, Denies change in stool character, Denies nausea and Denies vomiting Musc Denies deformity and Denies joint swelling Neuro Denies syncope and Denies headache(s) Physical exam (Primary Care) Vital Signs: Last Vital Signs Pulse 78 12/01/23 11:17 BP 138/80 12/01/23 11:17 Pulse Ox 97 12/01/23 11:17 Oxygen Delivery Method Room Air 12/01/23 11:17 BMI result Body Mass Index 19.9 Tobacco/Smoking Status: Tobacco use Status Tobacco use date assessed 12/01/23 12/01/23 11:19 Patient Tobacco Use Status Current everyday Tobacco 12/01/23 11:19 Tobacco use type Cigarette 12/01/23 11:19 e-Cigarette/Vaping Use Never Used 12/01/23 11:19 PHQ-9: PHQ-9 Score PHQ-9: Total score 0 12/01/23 11:19 Depression Screening Interpretation: Negative Thrive Assessment: Date of Thrive Assessment Date Thrive assessed 09/20/22 12/01/23 11:19 Currently or been in a relationship where the following occur: no concerns reported Const General: cooperative, comfortable, no acute distress and alert Neck Neck: Yes no lymphadenopathy Thyroid: Thyroid normal Resp Effort & Inspection: normal respiratory effort Auscultation: clear to auscultation bilaterally Percussion: percussion normal Cardio Jugular venous distension: no JVD Palpation: normal PMI Rate: regular rate Rhythm: regular rhythm Heart sounds: S1 normal heart sound present and S2 normal heart sound present GI Inspection: Yes normal to inspection Palpation (GI): No hepatosplenomegaly present Skin General skin exam: no rashes or lesions noted Extrem General: Yes no clubbing, cyanosis or edema Assessment and Plan Assessment & Plan (1) Hyperlipidemia: Code(s): E78.5 - Hyperlipidemia, unspecified Plan: stable; same rx Orders: Orders Lipid Panel Today Z13.220 - Encounter for screening for lipoid disorders Coding Level of Care Code Est Pt Level 3 (78875) Diagnoses Hyperlipidemia E78.5 Additional Codes LOUIS-7 Assessment Billing - LOUIS-7 Assessment Tool: LOUIS-7 Assessment 29062 ([id number])
== END 2023-12-01 11:30 | disposition home or self-care (01) ==
PROVIDERS: PCP Internal Medicine; Visit Provider Internal Medicine
DX: E78.5 Hyperlipidemia, unspecified (principal)
CPT/HCPCS: 99213

== ENCOUNTER 2024-01-02 19:43 | Emergency (ER) | payer MEDICARE, SELFPAY ==
--- NOTE | 2024-01-02 | ECG_ITS ---
Test Reason : ABD PAIN Blood Pressure : / mmHG Vent. Rate : 070 BPM Atrial Rate : 070 BPM P-R Int : 174 ms QRS Dur : 094 ms QT Int : 368 ms P-R-T Axes : 063 054 061 degrees QTc Int : 397 ms Sinus rhythm with Premature supraventricular complexes Otherwise normal ECG When compared with ECG of 13-SEP-2022 18:53, Premature supraventricular complexes are now Present Referred By: Generic ED Physician Electronically Signed By:DOC LITTLE
--- NOTE | ~2024-01-02 | CT_ITS ---
EXAMINATION: CT ABDOMEN AND PELVIS WITH CONTRAST CLINICAL INFORMATION: upper abd pain etiology?? COMPARISON: CT dated 09/13/2022 TECHNIQUE: Multidetector volumetric images were obtained from the superior aspect of the liver through the pubic symphysis following administration 85 mL of Omnipaque 350 intravenous contrast. Sagittal and coronal reformatted images were obtained on the technologist's workstation. Oral contrast: No This CT examination was performed using dose optimization techniques as appropriate, variously including the following: *Automated exposure control *Adjustment of mA and/or kV according to patient size (this includes techniques or standardized protocols for targeted exams where dose is matched to indication/reason for exam; i.e. extremities or head) *Use of iterative reconstruction technique DLP: 354 mGy-cm FINDINGS: LUNG BASES: Mild bibasilar pleural parenchymal scarring. LIVER, GALLBLADDER, AND BILIARY TREE: The liver is normal in size, shape, and attenuation. No focal hepatic lesion or biliary ductal dilatation is present. The gallbladder is unremarkable with no evidence of radiopaque gallstones, gallbladder wall thickening, or obvious pericholecystic inflammatory changes. PANCREAS: Unremarkable. SPLEEN: Unremarkable. ADRENAL GLANDS: Unremarkable. KIDNEYS AND URETERS: The kidneys are normal in size, shape, and attenuation. There is a 3 mm calculus within a calyx at the interpolar region of the left kidney. No obstructing calculi are identified. No perinephric stranding. A 2.4 cm simple cyst is present in the left renal interpolar region. And additional small simple cyst is present in the right kidney in addition to multiple subcentimeter foci which are favored to correspond to cysts. No recommend imaging follow-up. BLADDER: Distended. No bladder wall thickening. GASTROINTESTINAL TRACT: Stomach, small bowel, and colon are normal in caliber. No bowel wall thickening or surrounding inflammatory changes. Appendix is not well seen, though findings of acute appendicitis are identified. Moderate volume of stool throughout the colon, particularly the right hemicolon. No intraperitoneal free fluid or free air. ABDOMINAL WALL: No significant hernia is appreciated. LYMPH NODES: Normal. VASCULAR: Unremarkable. PELVIC VISCERA: Mild prostatomegaly. OSSEOUS STRUCTURES: Severe degenerative spondylosis in the lumbar spine with left convex curvature. 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 No acute osseous abnormalities. CT/CT abdomen pelvis w IV con IMPRESSION: 1. No acute intra-abdominal or intrapelvic abnormalities are identified. 2. A 3 mm nonobstructing calculus in the left kidney. No evidence of obstructive uropathy. 3. Moderate volume of stool throughout the colon. 4. Mild prostatomegaly. 5. 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 Fleischner guidelines were followed.
[2024-01-02 19:54] VITALS: BP 169/76; PULSE 69; RESP 20; TEMP 36.5; O2SAT 99
[2024-01-02 19:56] VITALS: BP 169/76; PULSE 69; RESP 20; TEMP 36.5; O2SAT 99; BMI 19.5
[2024-01-02 20:23] LABS: MANUAL DIFF FLAG NO
[2024-01-02 20:25] LABS: Basophils Absolute Auto 0.1 X10*3/uL (0.0-0.2); Basophils Percent Auto 0.4 % (0-2); Eosinophils Absolute Auto 0.2 X10*3/uL (0.0-0.4); Eosinophils Percent Auto 1.6 % (0-4); Hematocrit 39.2 % (42.0-52.0); Hemoglobin 13.5 g/dl (14.0-18.0); Imm Gran Abs Auto 0.02 X10*3/uL (0.00-0.03); Imm Gran Pct Auto 0.2 % (0.0-0.4); Lymphocytes Absolute Auto 3.1 X10*3/uL (1.2-4.9); Lymphocytes Percent Auto 27.1 % (20-40); Mean Corpuscular HGB Conc 34.4 g/dl (31.0-36.0); Mean Corpuscular Hemoglobin 32.2 pg (27.0-33.0); Mean Corpuscular Volume 93.6 fL (80.0-98.0); Mean Platelet Volume 10.1 fL (9.4-12.4); Monocytes Absolute Auto 1.1 X10*3/uL (0.1-1.2); Monocytes Percent Auto 9.4 % (2-11); Neutrophils Percent Auto 61.3 % (45-73); Platelet Count 205 X10*3/uL (160-400); Red Blood Count 4.19 X10*6/uL (4.60-5.80); Red Cell Distribution Width 12.4 % (11.0-16.0); White Blood Count 11.5 X10*3/uL (4.8-10.8)
[2024-01-02 20:44] LABS: Alanine Aminotransferase 11 U/L (0-40); Albumin Level 3.9 g/dL (3.5-5.0); Alkaline Phosphatase 63 U/L (39-117); Anion Gap 14 (12-20); Aspartate Amino Transferase 18 U/L (5-37); Bilirubin Total 0.3 mg/dL (0.0-1.0); Blood Urea Nitrogen 18 mg/dL (9-16); Calcium 9.5 mg/dL (8.4-10.2); Carbon Dioxide 23 mmol/L (22-29); Chloride 105 mmol/L (96-108); Creatinine Clr Calc Pharmacy 41.4; Estimated Glomerular Filt Rate 59; Glucose Random 112 mg/dL (60-115); Lipase 59 U/L (8-78); Potassium 4.7 mmol/L (3.3-5.1); Sodium 137 mmol/L (135-145)
[2024-01-02 20:55] LABS: Troponin-I High Sensitivity < 2.7 ng/L (<3.5-35.0)
[2024-01-02 21:41] VITALS: BP 156/79; PULSE 69; RESP 12; TEMP 36.8; O2SAT 97
--- NOTE | 2024-01-02 23:15 | ED.ABDPAIN ---
HPI - Abdominal Pain General Chief Complaint: Abdominal Pain Stated Complaint: upper abd pain Time Seen by Provider: 01/02/24 23:13 Source: patient Mode of arrival: ambulatory Limitations: no limitations History of Present Illness ED Provider: baudilio JOSE narrative: Patient with no significant medical history does not take any medication was playing softball game end of the game 18:00 noticed pain in epigastric area no nausea no vomiting no diarrhea never had similar pain in the past no trauma no radiation of the pain no chest pain no shortness a breath Related Data Home Medications ?Medication ?Instructions ?Recorded ?Confirmed cholecalciferol (vitamin D3) 25 25 mcg PO DAILY 06/29/20 12/01/23 mcg (1,000 unit) capsule multivitamin 1 tab PO DAILY 10/27/20 12/01/23 Previous Rx's ?Medication ?Instructions ?Recorded pravastatin 20 mg tablet 20 mg PO DAILY #90 tabs 04/15/23 pantoprazole 40 mg tablet,delayed 40 mg PO DAILY #20 tabs 01/03/24 release (Protonix) sucralfate 1 gram tablet 1 g PO BID #60 tabs 01/03/24 Allergies Allergy/AdvReac Type Severity Reaction Status Date / Time No Known Allergies Allergy Verified 01/02/24 19:56 Review of Systems Review of Systems Yes all other systems are reviewed and are negative PMFSH Past Medical History Medical History Cigarette nicotine dependence Hyperlipidemia Surgical History History of eye surgery H/O basal cell carcinoma excision Family History Family History Father Stroke Mother No problems noted. Brother No problems noted. Sister Lung cancer Social History Social History Household Members: Spouse Housing: Apartment Do you presently have visiting nurse or other home services: No Alcohol intake: never Patient Tobacco Use Status: Current everyday Tobacco user Tobacco use type: Cigarette Cigarettes Per Day: 10 Smoked in Last 30 Days: Yes e-Cigarette/Vaping Use: Never Used Second Hand Smoke Exposure: Yes Use of substances other than those prescribed or required for medical reasons: No Advance Directives: Yes Advance Directives on File: Yes Advance Directives Date on File: 09/16/22 service: No Current occupational status: retired Current occupational exposures/hazards: No Cognitive needs: No Hearing needs: No Vision needs: Yes Physical Exam ED Vital Signs: Vital Signs - 24 hr 01/02/24 19:54 01/02/24 19:56 01/02/24 21:41 Temperature 97.7 F 97.7 F 98.3 F Pulse Rate 69 69 69 Respiratory Rate 20 20 12 Blood Pressure 169/76 H 169/76 H 156/79 H Pulse Oximetry 99 99 97 Oxygen Delivery Method Room Air Room Air Room Air 01/03/24 01:13 01/03/24 02:04 01/03/24 02:04 Temperature 97.8 F 98.7 F 98.7 F Pulse Rate 74 63 63 Respiratory Rate 16 12 12 Blood Pressure 152/90 H 148/72 H 148/72 H Pulse Oximetry 97 98 98 Oxygen Delivery Method Room Air Room Air Room Air BMI result Body Mass Index 19.5 Appearance: Alert. Oriented X3. No acute distress. Eyes: No pallor or icterus ENT: Pharynx normal. Oral Mucosa moist Neck: Normal inspection. Neck supple. CVS: Normal heart rate and rhythm. Pulses normal. Respiratory: No respiratory distress. Equal air entry bilateral, no wheezing/rales/rhonchi Abdomen: Soft and deep tenderness in epigastric no bruit no pulsatile mass. Bowel sounds are present, no mass palpable, no CVA tenderness Skin: Skin warm and dry. Normal skin color. Normal skin turgor. Extremities: No lower extremity edema. No calf tenderness Neuro: Oriented X 3. No motor deficit. Medical Decision Making Medical Decision Making [facility] Narrative: Patient's upper abdominal pain with CT scan negative labs are stable no prior history of the pain in the possible patient has duodenal ulcer patient advised to take Protonix sucralfate and follow up with state epidemiologist/PCP Differential Diagnosis Differential Diagnoses: The differential diagnosis associated with the presentation includes Acute gastritis/pancreatitis/aortic aneurysm/ACS/hiatal hernia/duodenal ulcer Admission/Observation Consideration of admission/observation: Escalation of care including admission/observation considered Lab Data [facility] Lab Attestation statement: I reviewed the patient's lab results. 01/02/24 20:15 01/02/24 20:15 Labs: Lab Results 01/02/24 Range/Units 20:15 WBC 11.5 H (4.8-10.8) X10*3/uL RBC 4.19 L (4.60-5.80) X10*6/uL Hgb 13.5 L (14.0-18.0) g/dl Hct 39.2 L (42.0-52.0) % MCV 93.6 (80.0-98.0) fL MCH 32.2 (27.0-33.0) pg MCHC 34.4 (31.0-36.0) g/dl RDW 12.4 (11.0-16.0) % Plt Count 205 (160-400) X10*3/uL MPV 10.1 (9.4-12.4) fL Immature Gran % (Auto) 0.2 (0.0-0.4) % Neut % (Auto) 61.3 (45-73) % Lymph % (Auto) 27.1 (20-40) % [place] % (Auto) 9.4 (2-11) % Eos % (Auto) 1.6 (0-4) % Baso % (Auto) 0.4 (0-2) % Lymph # (Auto) 3.1 (1.2-4.9) X10*3/uL [place] # (Auto) 1.1 (0.1-1.2) X10*3/uL Eos # (Auto) 0.2 (0.0-0.4) X10*3/uL Baso # (Auto) 0.1 (0.0-0.2) X10*3/uL Abs Immat Gran (auto) 0.02 (0.00-0.03) X10*3/uL Absolute Neuts (auto) 7.0 (2.0-8.3) x10*3/uL Absolute Nucleated RBC 0.000 (0.0-0.012) X10*3/uL Nucleated RBC % (auto) 0.0 (0.0-0.2) /100WBC Sodium 137 (135-145) mmol/L Potassium 4.7 (3.3-5.1) mmol/L Chloride 105 (96-108) mmol/L Carbon Dioxide 23 (22-29) mmol/L Anion Gap 14 (12-20) BUN 18 H (9-16) mg/dL Creatinine 1.21 (0.5-1.4) mg/dL Estim Creat Clear Calc 41.4 Estimated GFR 59 Random Glucose 112 (60-115) mg/dL Calcium 9.5 (8.4-10.2) mg/dL Total Bilirubin 0.3 (0.0-1.0) mg/dL AST 18 (5-37) U/L ALT 11 (0-40) U/L Alkaline Phosphatase 63 (39-117) U/L Troponin I High Sens < 2.7 (<3.5-35.0) ng/L Total Protein 7.0 (6.5-8.0) g/dL Albumin 3.9 (3.5-5.0) g/dL Lipase 59 (8-78) U/L Independent Interpretation I performed an independent interpretation of an: EKG and CT Scan Radiology Impression Discussion of test interpretation with radiology: I have reviewed the radiologist's reading. Medications Administered Discontinued Medications Generic Name Dose Route Start Last Admin Trade Name Freq PRN Reason Stop Dose Admin Al Hydroxide/Mg Hydroxide 30 ml 01/03/24 01:06 01/03/24 01:14 Magnesium Hydrox/Alum Hydrox 30 Ml Oral.Susp PO 01/03/24 01:07 30 ml ONCE ONE Administration Famotidine 20 mg 01/03/24 01:06 01/03/24 01:14 Famotidine/Pf 20 Mg/2 Ml Vial IVPUSH 01/03/24 01:07 20 mg ONCE ONE Administration Iohexol 85 ml 01/02/24 23:33 01/02/24 23:34 Iohexol 350 Mg/Ml 100 Ml Infus..Btl IV 01/02/24 23:34 85 ml ONCE ONE Administration Lidocaine HCl 15 ml 01/03/24 01:06 01/03/24 01:14 Lidocaine Hcl Viscous 2 % 15 Ml Solution MUCOUS MEM 01/03/24 01:07 15 ml ONCE ONE Administration Discharge Plan Discharge Clinical Impression: Abdominal pain Patient Disposition: Home, Self-Care Instructions: Abdominal Pain (ED) Additional Instructions: Cause of your abdominal pain is not clear possible you have gastritis/duodenal ulcer May need to follow with state epidemiologist for further evaluation Take medication as prescribed Avoid fried food Prescriptions: New pantoprazole [Protonix] 40 mg tablet,delayed release (DR/EC) 40 mg PO DAILY Qty: 20 0RF sucralfate 1 gram tablet 1 g PO BID Qty: 60 0RF No Action pravastatin 20 mg tablet 20 mg PO DAILY Qty: 90 3RF cholecalciferol (vitamin D3) 25 mcg (1,000 unit) capsule 25 mcg PO DAILY multivitamin Tablet 1 tab PO DAILY Referrals: Arti Singh MD [Physician] - 2 weeks Interventions: ED Discharge Assessment Last Done: 01/03/24 02:04 Discharge Date/Time: 01/03/24 02:09 Print Language: [place]
[2024-01-02] MEDS: iohexoL 350 MG/ML 100 ML INFUS..BTL 85 ML IV (23:34)
[2024-01-03 01:13] VITALS: BP 152/90; PULSE 74; RESP 16; TEMP 36.6; O2SAT 97
[2024-01-03] MEDS: Magnesium Hydrox/Alum Hydrox 30 ML ORAL.SUSP PO (01:14)
[2024-01-03] MEDS: Lidocaine HCl Viscous 2 % 15 ML SOLUTION MUCOUS MEM (01:14)
[2024-01-03] MEDS: Famotidine/PF 20 MG/2 ML VIAL IVPUSH (01:14)
[2024-01-03 02:04] VITALS: BP 148/72; PULSE 63; RESP 12; TEMP 37.1; O2SAT 98
== END 2024-01-03 02:09 | disposition home or self-care (01) ==
PROVIDERS: Emergency Provider Internal Medicine; PCP Internal Medicine
DX: R10.13 Epigastric pain (principal); E78.5 Hyperlipidemia, unspecified; F17.210 Nicotine dependence, cigarettes, uncomplicated; Z79.02 Long term (current) use of antithrombotics/antiplatelets; Z79.899 Other long term (current) drug therapy
CPT/HCPCS: 36415; 74177; 80053; 83690; 84484; 85025; 93005; 96374; 99284; 99285; Q9967

== ENCOUNTER → 2024-01-02 19:54 | Outpatient (BNV) | payer MEDICARE, SELFPAY | PROVIDERS: Emergency Provider Internal Medicine; PCP Internal Medicine; Visit Provider Internal Medicine | DX: R10.9 Unspecified abdominal pain (principal) | CPT/HCPCS: 93010 ==

== ENCOUNTER 2024-05-08 07:37 | Outpatient (REF) | payer MEDICARE, SELFPAY ==
[2024-05-08 09:50] LABS: Cholesterol 159 mg/dL (<200); HDL Cholesterol 31 mg/dL (>40); LDL Cholesterol Calculated 101 mg/dL (<100); Triglycerides 137 mg/dL (<150)
== END 2024-05-08 07:38 | disposition home or self-care (01) ==
LOC: HO.LAB 07:37
PROVIDERS: PCP Internal Medicine; Visit Provider Internal Medicine
DX: Z13.220 Encounter for screening for lipoid disorders (principal)
CPT/HCPCS: 36415; 80061

== ENCOUNTER 2024-05-13 13:35 | Outpatient (AMB) | payer MEDICARE, SELFPAY ==
--- NOTE | 2024-05-13 13:40 | MHC.PC.OV ---
Vital Signs 05/13/24 13:41 Height 5 ft 6 in Weight 123 lb 6 oz BMI 19.9 BP 140/70 H Blood Pressure Location Lt brachial Position Sitting Pulse 82 Pulse Source Pulse Oximeter Pulse Oximetry (%) 96 Oxygen Delivery Method Room Air Intake Visit Reasons: ANNUAL Intake Note: Patient is here today for a physical. Statement Clerks Manager Required: No Fish Protector: Not Required per policy Accompanied by: Self / Same As Patient Allergies No Known Allergies Allergy (Verified 05/13/24 13:41) Medication List - Last Reconciled 05/13/24 by Ignacio Ballard MD cholecalciferol (vitamin D3) 25 mcg PO DAILY multivitamin 1 tab PO DAILY pantoprazole (Protonix) 40 mg PO DAILY pravastatin 20 mg PO DAILY sucralfate 1 g PO BID Tobacco use date assessed: 05/13/24 Fall risk assessment: No Falls in past year Last assessed Fall Risk: 05/13/24 Dental Screening Dental Screen Date: 12/01/23 HPI ANNUAL HPI Details hyperlipidemia; doing well PFSH Medical History Cigarette nicotine dependence Hyperlipidemia Surgical History History of eye surgery H/O basal cell carcinoma excision Family History Father Stroke Mother No problems noted. Brother No problems noted. Sister Lung cancer Social History (Updated 05/13/24 @ 13:45 by LYNDA Leblanc) Household Members: Spouse Housing: Apartment Do you presently have visiting nurse or other home services: No Alcohol intake: never Patient Tobacco Use Status: Current everyday Tobacco user Tobacco use type: Cigarette Cigarette Packs Per Day: 0.5 Cigarettes Per Day: 10 e-Cigarette/Vaping Use: Never Used Second Hand Smoke Exposure: Yes Advance Directives Date on File: 09/16/22 service: No Current occupational status: retired Current occupational exposures/hazards: No Cognitive needs: No Hearing needs: No Vision needs: Yes Questionnaire PHQ-9 Over the last 2 weeks, how often have you been bothered by any of the following problems? 1. Little interest or pleasure in doing things: not at all 2. Feeling down, depressed, or hopeless: not at all 3. Trouble falling or staying asleep, or sleeping too much: not at all 4. Feeling tired or having little energy: not at all 5. Poor appetite or overeating: not at all 6. Feeling bad about yourself - or that you are a failure or have let yourself or your family down: not at all 7. Trouble concentrating on things, such as reading the newspaper or watching television: not at all 8. Moving or speaking so slowly that other people could have noticed. Or the opposite - being so fidgety or restless that you have been moving around a lot more than usual: not at all 9. Thoughts that you would be better off or of hurting yourself in some way: not at all Total score: 0 Depression Screening Interpretation: Negative Depression Screening Done: Yes Source: Developed by Drs. Nikita Lee, Liz Hawkins, Beau Lauren and colleagues, with an educational trevor from [employer]. Thrive Questionnaire Date Thrive assessed: 05/13/24 I am a: Patient What is your living situation today?: I have a steady place to live Within the past 12 months, did the food you bought not last and you didn't have the money to get more?: Never true Within the past 12 months, did you worry whether your food would run out before you got money to buy more?: Never true Do you have trouble paying for medicines?: No Do you have trouble getting transportation to medical appointments?: No Do you have trouble paying your heating and electricity bill?: No Do you have trouble taking care of your child, family member or friend?: No Do you have trouble with day-to-day activities such as bathing, preparing meals, shopping, managing finances, etc.?: No Are you currently unemployed and looking for a job?: No Are you interested in more education?: No Please select the resources that you would like help with: None Currently or been in a relationship where the following occur: No concerns reported THRIVE Score: 0 AUDIT C Alcohol Use Questionnaire (AUDIT-C) 1. How often do you have a drink containing alcohol?: Never Total Score: 0 LOUIS-7 AMB Questionnaire LOUIS-7 Date LOUIS - 7 assessed: 05/13/24 Feeling nervous, anxious, or on edge: 0 = Not at all Not being able to stop or control worryin = Not at all Worrying too much about different things: 0 = Not at all Trouble relaxin = Not at all Being so restless that it is hard to sit still: 0 = Not at all Becoming easily annoyed or irritable: 0 = Not at all Feeling afraid as if something awful might happen: 0 = Not at all Total LOUIS-7 score (0-4 normal; 5-9 mild; 10-14 moderate; 15-21 severe): 0 Source: Developed by Drs. Nikita Lee, Liz Hawkins, Beau Lauren and colleagues, with an educational trevor from [employer]. Review of Systems Const Denies chills, Denies fatigue, Denies headache(s) and Denies weight loss Eyes Denies change in vision, Denies diplopia and Denies eye pain ENT Denies vertigo, Denies dizziness, Denies headache(s) and Denies nasal discharge Card Denies chest pain, Denies rapid heart rate and Denies dyspnea on exertion Resp Denies chest congestion, Denies cough, Denies pain with cough and Denies dyspnea on exertion GI Denies abdominal pain, Denies hematochezia and Denies change in bowel habits Musc Denies myalgias, Denies arthralgias and Denies joint swelling Skin/Breast Denies lesions and Denies unusual bruising Neuro Denies vertigo, Denies dizziness, Denies headache(s) and Denies focal weakness Endo Denies fatigue Physical exam (Primary Care) Vital Signs: Last Vital Signs Pulse 82 05/13/24 13:41 BP 140/70 H 05/13/24 13:41 Pulse Ox 96 05/13/24 13:41 Oxygen Delivery Method Room Air 05/13/24 13:41 BMI result Body Mass Index 19.9 Tobacco/Smoking Status: Tobacco use Status Tobacco use date assessed 05/13/24 05/13/24 13:47 Patient Tobacco Use Status Current everyday Tobacco 05/13/24 13:47 Tobacco use type Cigarette 05/13/24 13:47 e-Cigarette/Vaping Use Never Used 05/13/24 13:47 PHQ-9: PHQ-9 Score PHQ-9: Total score 0 05/13/24 14:09 Depression Screening Interpretation: Negative Thrive Assessment: Date of Thrive Assessment Date Thrive assessed 05/13/24 05/13/24 13:47 Currently or been in a relationship where the following occur: No concerns reported Const General: cooperative, healthy appearing and no acute distress Orientation/consciousness: oriented to person, oriented to place and oriented to time HENAR Head: Yes normal to inspection, Yes normocephalic and Yes atraumatic Mouth: Normal oral and palatal mucosa present and tongue normal Throat: Yes posterior oropharynx normal and Yes uvula midline Eyes General: appearance normal, both eyes and all related structures Neck Neck: Yes normal visual inspection, Yes full ROM and Yes no lymphadenopathy Thyroid: Thyroid normal Carotids: normal carotid upstroke Chest Chest palpation & inspection: normal inspection of the chest Resp Effort & Inspection: normal respiratory effort and able to speak in complete sentences Auscultation: clear to auscultation bilaterally Cardio Jugular venous distension: no JVD Palpation: normal PMI Rate: regular rate Rhythm: regular rhythm Heart sounds: S1 normal heart sound present and S2 normal heart sound present GI Inspection: Yes normal to inspection Palpation (GI): Soft to palpation and No hepatosplenomegaly present Auscultation: normal bowel sounds General: Yes no CVA tenderness Back/Spine/Pelvis Back: no CVA tenderness Skin General skin exam: no rashes or lesions noted Neuro General: oriented to person, oriented to place and oriented to time Extrem General: Yes normal to inspection and Yes full ROM Office Procedures Flu Questionnaire Does the patient have a severe egg allergy?: No Does the patient have severe life threatening allergies?: No Does the patient have a fever or illness today?: No Has the patient ever had Guillain-[place] Syndrome?: No Has the patient ever had any past reaction to a flu shot?: No Immunizations Fluarix Triv [id number] (PF) 45 mcg (15 mcg x 3)/0.5 mL IM syringe Performing Provider: Ignacio Ballard MD [facility] Administered by: LYNDA Pastor on 05/13/24 14:10 Dose Route Admin Location Dispensed Lot Number Expiration Date [facility] [employer] 0.5 mL IM Left Deltoid 0.5 mL [id number] 12/09/24 [id number] [employer] VIS Given Date VIS Provided VIS Publication Date 05/13/24 Single Vaccine 21 Eligibility Eligibility Date Funding Source Not [place] Eligible 05/13/24 Private Coding Level of Care Code Est Pt Prev Care >65y(78231) Diagnoses Physical exam Z00.00 Hyperlipidemia E78.5 Assessment & Plan Assessment & Plan (1) Physical exam: Code(s): Z00.00 - Encounter for general adult medical examination without abnormal findings Category: Medical Plan: stable; do labs (2) Hyperlipidemia: Code(s): E78.5 - Hyperlipidemia, unspecified Category: Medical Plan: stable; same rx Orders: Orders Influenza [id number] Immunization Today Z23 - Encounter for immunization
[2024-05-13 13:41] VITALS: BP 140/70; PULSE 82; O2SAT 96; BMI 19.9
== END 2024-05-13 14:09 | disposition home or self-care (01) ==
PROVIDERS: PCP Internal Medicine; Visit Provider Internal Medicine
DX: Z00.00 Encounter for general adult medical examination without abnormal findings (principal); E78.5 Hyperlipidemia, unspecified; Z23 Encounter for immunization

== ENCOUNTER → 2024-05-13 13:35 | Outpatient (BNVA) | payer MEDICARE, SELFPAY | PROVIDERS: PCP Internal Medicine; Visit Provider Internal Medicine | DX: Z00.00 Encounter for general adult medical examination without abnormal findings (principal); Z23 Encounter for immunization; E78.5 Hyperlipidemia, unspecified; F17.200 Nicotine dependence, unspecified, uncomplicated; Z71.6 Tobacco abuse counseling | CPT/HCPCS: 90471; 90656; 96127; 99397 ==

== ENCOUNTER 2024-09-04 13:13 | Outpatient (REF) | payer MEDICARE, SELFPAY ==
[2024-09-04 14:37] LABS: MANUAL DIFF FLAG NO
[2024-09-04 15:33] LABS: Basophils Absolute Auto 0.1 X10*3/uL (0.0-0.2); Basophils Percent Auto 0.5 % (0-2); Eosinophils Absolute Auto 0.3 X10*3/uL (0.0-0.4); Eosinophils Percent Auto 2.7 % (0-4); Hematocrit 37.7 % (42.0-52.0); Hemoglobin 13.2 g/dl (14.0-18.0); Imm Gran Abs Auto 0.07 X10*3/uL (0.00-0.03); Imm Gran Pct Auto 0.6 % (0.0-0.4); Lymphocytes Absolute Auto 2.4 X10*3/uL (1.2-4.9); Mean Corpuscular Hemoglobin 31.1 pg (27.0-33.0); Mean Corpuscular Volume 88.9 fL (80.0-98.0); Mean Platelet Volume 12.9 fL (9.4-12.4); Monocytes Absolute Auto 1.2 X10*3/uL (0.1-1.2); Monocytes Percent Auto 9.8 % (2-11); Neutrophils Absolute Auto 7.9 x10*3/uL (2.0-8.3); Neutrophils Percent Auto 66.4 % (45-73); Platelet Count 267 X10*3/uL (160-400); Red Blood Count 4.24 X10*6/uL (4.60-5.80); Red Cell Distribution Width 15.1 % (11.0-16.0); White Blood Count 11.9 X10*3/uL (4.8-10.8)
[2024-09-04 15:50] LABS: Gamma Glutamyl Transpeptidase 1090 U/L (11-51)
[2024-09-04 16:21] LABS: Alanine Aminotransferase 153 U/L (0-40); Albumin Level 3.6 g/dL (3.5-5.0); Alkaline Phosphatase 690 U/L (39-117); Anion Gap 10 (12-20); Aspartate Amino Transferase 103 U/L (5-37); Bilirubin Total 7.6 mg/dL (0.0-1.0); Blood Urea Nitrogen 23 mg/dL (9-16); Calcium 9.8 mg/dL (8.4-10.2); Carbon Dioxide 22 mmol/L (22-29); Chloride 110 mmol/L (96-108); Cholesterol 198 mg/dL (<200); Estimated Glomerular Filt Rate > 60; Glucose Random 95 mg/dL (60-115); HDL Cholesterol 14 mg/dL (>40); LDL Cholesterol Calculated 143 mg/dL (<100); Potassium 4.3 mmol/L (3.3-5.1); Sodium 138 mmol/L (135-145); Total Protein 7.3 g/dL (6.5-8.0); Triglycerides 209 mg/dL (<150)
== END 2024-09-04 13:14 | disposition home or self-care (01) ==
LOC: HO.LAB 13:13
PROVIDERS: Internal Medicine; Visit Provider Internal Medicine
DX: R17 Unspecified jaundice (principal); K21.9 Gastro-esophageal reflux disease without esophagitis; R91.1 Solitary pulmonary nodule; E78.5 Hyperlipidemia, unspecified; N20.0 Calculus of kidney; F17.210 Nicotine dependence, cigarettes, uncomplicated
CPT/HCPCS: 36415; 80053; 80061; 82977; 85025; 96127; 99212

== ENCOUNTER 2024-09-04 13:13 | Outpatient (AMB) | payer MEDICARE, SELFPAY ==
--- NOTE | 2024-09-04 13:14 | A.OFFPC_ITS ---
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 Required: No Accompanied by: Self / Same As Patient Allergies No Known Allergies Allergy (Verified 09/04/24 13:35) Medication List - Last Reconciled 09/04/24 by Maribell Hilario MD cholecalciferol (vitamin D3) 25 mcg PO DAILY multivitamin 1 tab PO DAILY pantoprazole (Protonix) 40 mg PO DAILY pravastatin 20 mg PO DAILY Tobacco use date assessed: 09/04/24 Fall risk assessment: No Falls in past year Last assessed Fall Risk: 09/04/24 Dental Screening Dental Screen Date: 09/04/24 Did you have a dental visit in the last 12 months?: No Did you have a dental problem in the last 6 months where you did not have access to dental care?: No Was dental information given to patient?: Patient has dentist HPI HPI Comments History of Present Illness Details The patient is a 73-year-old male presenting with abdominal pain and jaundice. He reports a one-month history of heartburn and epigastric pain. Two weeks ago, he experienced a change in stool color to psychiatric cns, mushy consistency, along with darker urine and noticed mild jaundice. He denies recent travel and has regular contact with family dogs but is inconsistent in hand hygiene post- contact. There has been a slight weight loss since May. His past medical history includes an unexplained hospitalization for fever and epigastric pain, and incidental findings of a 3 mm kidney stone and pulmonary nodule during prior evaluations. [facility] Medical History (Updated 09/04/24 @ 13:59 by Maribell Hilario MD) Physical exam Cyst of eyelid Bacteremia Fever of unknown origin Gram-negative bacteremia Cigarette nicotine dependence Hyperlipidemia Surgical History History of eye surgery H/O basal cell carcinoma excision Family History Father Stroke Mother No problems noted. Brother No problems noted. Sister Lung cancer Social History (Updated 09/04/24 @ 13:42 by Maribell Hilario MD) Household Members: Spouse Housing: Apartment Do you presently have visiting nurse or other home services: No Alcohol intake: former Patient Tobacco Use Status: Current everyday Tobacco user Tobacco use type: Cigarette Cigarette Packs Per Day: 0.5 Cigarettes Per Day: 10 e-Cigarette/Vaping Use: Never Used Second Hand Smoke Exposure: Yes Advance Directives Date on File: 09/16/22 service: No Current occupational status: retired Current occupational exposures/hazards: No Cognitive needs: No Hearing needs: No Vision needs: Yes Questionnaire PHQ-9 Over the last 2 weeks, how often have you been bothered by any of the following problems? 1. Little interest or pleasure in doing things: not at all 2. Feeling down, depressed, or hopeless: not at all 3. Trouble falling or staying asleep, or sleeping too much: not at all 4. Feeling tired or having little energy: not at all 5. Poor appetite or overeating: not at all 6. Feeling bad about yourself - or that you are a failure or have let yourself or your family down: not at all 7. Trouble concentrating on things, such as reading the newspaper or watching television: not at all 8. Moving or speaking so slowly that other people could have noticed. Or the opposite - being so fidgety or restless that you have been moving around a lot more than usual: not at all 9. Thoughts that you would be better off or of hurting yourself in some way: not at all Total score: 0 Depression Screening Interpretation: Negative Depression Screening Done: Yes 89666 - PHQ-9 Billing: Yes Source: Developed by Drs. Nikita Lee, Liz Hawkins, Beau Lauren and colleagues, with an educational trevor from [employer]. Thrive Questionnaire Date Thrive assessed: 09/04/24 I am a: Patient What is your living situation today?: I have a steady place to live Within the past 12 months, did the food you bought not last and you didn't have the money to get more?: Never true Within the past 12 months, did you worry whether your food would run out before you got money to buy more?: Never true Do you have trouble paying for medicines?: No Do you have trouble getting transportation to medical appointments?: No Do you have trouble paying your heating and electricity bill?: No Do you have trouble taking care of your child, family member or friend?: No Do you have trouble with day-to-day activities such as bathing, preparing meals, shopping, managing finances, etc.?: No Are you currently unemployed and looking for a job?: No Are you interested in more education?: No Please select the resources that you would like help with: None Currently or been in a relationship where the following occur: No concerns reported THRIVE Score: 0 AUDIT C Alcohol Use Questionnaire (AUDIT-C) 1. How often do you have a drink containing alcohol?: Never Total Score: 0 Score Reviewed/Action Taken: No LOUIS-7 AMB Questionnaire LOUIS-7 Date LOUIS - 7 assessed: 09/04/24 Feeling nervous, anxious, or on edge: 0 = Not at all Not being able to stop or control worryin = Not at all Worrying too much about different things: 0 = Not at all Trouble relaxin = Not at all Being so restless that it is hard to sit still: 0 = Not at all Becoming easily annoyed or irritable: 0 = Not at all Feeling afraid as if something awful might happen: 0 = Not at all Total LOUIS-7 score (0-4 normal; 5-9 mild; 10-14 moderate; 15-21 severe): 0 Source: Developed by Drs. Nikita Lee, Liz Hawkins, Beau Lauren and colleagues, with an educational trevor from [employer]. LOUIS-7 Assessment Billing LOUIS-7 Assessment Tool: LOUIS-7 Assessment 67346 Review of Systems Const All systems reviewed & are unremarkable except as noted in HPI and below Card Denies chest pain at rest, Denies chest pain with activity, Denies edema, Denies irregular heart rhythm, Denies claudication, Denies dyspnea, Denies dyspnea on exertion, Denies orthopnea, Denies paroxysmal nocturnal dyspnea and Denies slow heart rate Resp Denies cough, Denies dyspnea and Denies dyspnea on exertion GI Reports abdominal pain, Denies change in bowel habits, Denies excessive flatus, Reports dyspepsia, Reports heartburn, Reports loose stools, Denies nausea and Denies vomiting Physical exam (Primary Care) Vital Signs: Last Vital Signs BP 150/82 H 09/04/24 13:32 BMI result Body Mass Index 19.7 Tobacco/Smoking Status: Tobacco use Status Tobacco use date assessed 05/13/24 09/04/24 13:15 Patient Tobacco Use Status Current everyday Tobacco 09/04/24 13:15 Tobacco use type Cigarette 09/04/24 13:15 e-Cigarette/Vaping Use Never Used 09/04/24 13:15 Are you ready to quit: No Tobacco cessation counseling provided: Yes Relapse Prevention: discussed the importance of a supportive environment and discussed extending NRT Number of minutes spent counselin CPT code: Less than 3 minutes Depression Screening Interpretation: Negative Thrive Assessment: Date of Thrive Assessment Date Thrive assessed 09/04/24 09/04/24 13:15 Currently or been in a relationship where the following occur: No concerns reported Resp Effort & Inspection: normal respiratory effort Auscultation: clear to auscultation bilaterally Cardio Jugular venous distension: no JVD Rate: regular rate Rhythm: regular rhythm Heart sounds: S1 normal heart sound present and S2 normal heart sound present GI Inspection: Yes normal to inspection Palpation (GI): Soft to palpation and Tenderness to palpation present (GI) in the epigastrum Auscultation: normal bowel sounds Extrem General: Yes full ROM Coding Level of Care Code Est Pt Level 4 (27744) Complex EM visit Add On G2211 Diagnoses Jaundice R17 GERD (gastroesophageal reflux disease) K21.9 Pulmonary nodule R91.1 Hyperlipidemia E78.5 Nephrolithiasis N20.0 Smoker F17.200 Additional Codes PHQ-9 - 73201 - PHQ-9 Billing: Yes ([id number]) LOUIS-7 Assessment Billing - LOUIS-7 Assessment Tool: LOUIS-7 Assessment 72979 ([id number]) Time Spent (min) 24 Assessment & Plan Assessment & Plan (1) Jaundice: Code(s): R17 - Unspecified jaundice Category: Medical (2) GERD (gastroesophageal reflux disease): Code(s): K21.9 - Gastro-esophageal reflux disease without esophagitis Category: Medical (3) Pulmonary nodule: Code(s): R91.1 - Solitary pulmonary nodule Category: Medical (4) Hyperlipidemia: Code(s): E78.5 - Hyperlipidemia, unspecified Category: Medical (5) Nephrolithiasis: Code(s): N20.0 - Calculus of kidney Category: Medical (6) Smoker: Code(s): F17.200 - Nicotine dependence, unspecified, uncomplicated Category: Social Hx Plan I plan to conduct liver function tests and check the white cell count to rule out infection. The abdominal ultrasound is intended to explore potential hepatic or biliary duct issues. The patient will receive a repeat lung cancer screening based on a prior pulmonary nodule finding. Elevated blood pressure needs re- evaluation in three weeks, and a 30-minute pre-breakfast PPI is prescribed for heartburn. Spinal arthritis requires management mindful of liver function, avoiding Tylenol. Patient was informed and verbally consented to the use of an ambient scribe for clinic note documentation during this visit. I discussed with the patient that the symptoms suggest possible liver or biliary tract issues. The need for blood work and an ultrasound was explained, emphasizing the importance of checking liver function and any obstructions. The potential for infection or inflammation to be identified via lab work was detailed. I recommended managing heartburn with a daily PPI and advised regular blood pressure monitoring. Additionally, for his episodic back pain linked to arthritis, I advised against using Tylenol due to potential liver complications, stressing the need for alternative pain management strategies. We discussed the benefits of avoiding substances detrimental to liver health and agreed on the necessity of observing any new symptoms or changes and following up for annual lung screening and further evaluations. Orders: Orders US abdomen comp w elastography Today R17 - Unspecified jaundice Complete Blood Count Auto Diff Today R17 - Unspecified jaundice Gamma Glutamyl Transpeptidase Today R17 - Unspecified jaundice Comprehensive Met. Panel Today R17 - Unspecified jaundice Referrals Lung Cancer Screening Referral F17.200 - Nicotine dependence, unspecified, uncomplicated Medications: New omeprazole 20 mg PO DAILY 90 days 90 caps 1RF K21.9 - Gastro-esophageal reflux disease without esophagitis nabumetone 500 mg PO BID 5 days PRN 10 tabs 0RF pain Discontinued pantoprazole (Protonix) Discontinued Reason: Patient Completed Course 40 mg PO DAILY 20 tabs 0RF Patient Instructions: - Complete prescribed blood work and imaging promptly. - Take prescribed PPI 30 minutes before breakfast daily. - Monitor blood pressure and schedule follow-up for re-evaluation in three weeks. - Follow up with pending ultrasound and lung screening appointments. - Avoid Tylenol and consult for alternative spinal pain relief. - Practice proper hygiene with potential pet waste exposure. - Report any new symptoms or significant changes promptly.
[2024-09-04 13:32] VITALS: BP 150/82; BMI 19.7
== END 2024-09-04 13:53 | disposition home or self-care (01) ==
LOC: HO.HMCH 13:13
PROVIDERS: PCP Internal Medicine; Visit Provider Internal Medicine
DX: R17 Unspecified jaundice (principal); K21.9 Gastro-esophageal reflux disease without esophagitis; R91.1 Solitary pulmonary nodule; E78.5 Hyperlipidemia, unspecified; N20.0 Calculus of kidney; F17.200 Nicotine dependence, unspecified, uncomplicated

== ENCOUNTER 2024-09-05 08:23 | Emergency (ER) | payer MEDICARE, MEDICAID, SELFPAY ==
[2024-09-05] VITALS (7 sets, daily range): BP systolic 132–171; BP diastolic 68–90; PULSE 72–93; RESP 14–20; TEMP 36.1–37.1; O2SAT 96–99; BMI 18.7
--- NOTE | ~2024-09-05 | CT_ITS ---
EXAMINATION: CT ABDOMEN PELVIS WITH IV CONTRAST HISTORY: epigastric abd pain, elevated LFTs/Lipase, jaundice COMPARISON: Comparison is made with the prior examination dated 01/02/2024. TECHNIQUE: CT scan of the abdomen and pelvis was performed following administration of 85 mL Omnipaque 350 using standard departmental protocol. Coronal and sagittal reformatted images were generated and reviewed. Oral contrast material was not administered at the request of the referring physician. This CT exam was performed with one or more of the following dose reduction techniques: automated exposure control, adjustment of the mA and/or kV according to patient size, use of iterative reconstruction technique. DLP: 282 mGy-cm FINDINGS: LOWER CHEST: There is linear scarring at the lung bases. There is no pleural effusion. CARDIOVASCULATURE: The heart is normal in size. There is no pericardial effusion. LIVER: The liver is normal in size and contour. No liver mass is identified. The hepatic and portal veins are patent. GALLBLADDER / BILE DUCTS: The gallbladder is markedly distended. There is moderate intrahepatic biliary ductal dilatation. The common bile duct is markedly dilated, measuring up to 17 mm in diameter. There is abrupt tapered narrowing of the common bile duct in the pancreatic head. SPLEEN: The spleen is normal in size. No focal splenic lesion is identified. PANCREAS: There is a hypodense soft tissue mass in the uncinate process of the pancreas measuring 4.2 x 3.2 x 3.1 cm. The mass causes dilatation of the pancreatic duct. ADRENAL GLANDS: Within normal limits. KIDNEYS/RETROPERITONEUM: No renal calculi are identified. There is no hydronephrosis. There is a 9 mm cyst at the lower pole of the right kidney and a 2.6 cm cyst at the lower pole of the left kidney. Additional smaller cysts are also noted. LYMPH NODES: There is an enlarged aortocaval lymph node measuring 3.4 x 2.4 cm. VASCULATURE: The abdominal aorta demonstrates atherosclerotic calcification, but is normal in caliber. MESENTERY/PERITONEUM: No free fluid. No masses. There is no free intraperitoneal gas. STOMACH: The stomach is collapsed, limiting evaluation. SMALL BOWEL: The small bowel is normal in caliber. COLON: The colon is unremarkable. APPENDIX: The appendix is not seen, however no inflammatory changes are seen adjacent to the cecum. URINARY BLADDER/PELVIC ORGANS: The urinary bladder is collapsed, limiting evaluation. The prostate is normal in size. BONES / SOFT TISSUES: There is severe degenerative disc disease of the spine. CT/CT abdomen pelvis w IV con IMPRESSION: 4.2 x 3.2 x 3.1 cm soft tissue mass in the uncinate process of the pancreas causing biliary obstruction. Enlarged 3.4 x 2.4 cm aortocaval lymph node. Findings are compatible with pancreatic adenocarcinoma. These findings were discussed with Dr. Kessler in the emergency room on 09/05/2024 at 10:25 AM. Electronically signed by: Nikita Nagy MD 09/05/2024 10:33 AM EDT
--- NOTE | ~2024-09-05 | US_ITS ---
CLINICAL HISTORY: epigastric ruq pain, elevated LFTs lipase US abdomen limited with color Doppler Comparison: CT/[facility]/SR - CT ABDOMEN PELVIS W IV CON - 09/05/24 09:54 EDT Findings: Mass head of the pancreas measuring 4.4 x 5.1 x 6.1 cm.Dilated pancreatic duct There is mass effect on the adjacent IVC Liver is normal in size and echotexture. Right lobe length 15.4 cm. No focal hepatic masses. Intrahepatic ductal dilatation. Common duct 20 mm with echogenic dependent sludge. Gallbladder hydropslayering gallbladder sludge no gallstonesmild gallbladder wall thickening No pericholecystic fluid. No sonographic Singh sign. Right kidney measures, 10.5 cm in length. Normal cortical width and echotexture. No nephrolithiasis or hydronephrosis.Incidental parapelvic cyst lower pole measuring 1.1 x 1.1 x 1.2 cm and a renal cortical cyst with thin septation midpole measuring 0.9 x 0.8 x 0.8 cm. Impression: 1. Solid heterogeneous mass within the head of the pancreas causing biliary and pancreatic ductal dilatation considered malignant. 2. Gallbladder hydrops with layering gallbladder sludge. Dilated common bile duct with echogenic sludge. Intrahepatic ductal dilatation. 3. Parapelvic and renal cortical cyst right kidney as described This document has been electronically signed by: Jarvis Bishop MD on 09/05/2024 11:37:26
[2024-09-05 08:46] LABS: Hematocrit 38.2 % (42.0-52.0); Hemoglobin 13.5 g/dl (14.0-18.0); Mean Corpuscular HGB Conc 35.3 g/dl (31.0-36.0); Mean Corpuscular Hemoglobin 31.3 pg (27.0-33.0); Mean Corpuscular Volume 88.4 fL (80.0-98.0); Mean Platelet Volume 11.7 fL (9.4-12.4); Platelet Count 275 X10*3/uL (160-400); Red Blood Count 4.32 X10*6/uL (4.60-5.80); Red Cell Distribution Width 15.2 % (11.0-16.0)
[2024-09-05 08:47] LABS: WBC ABN SCTR FOR CBC 1
[2024-09-05 09:04] LABS: Alanine Aminotransferase 151 U/L (0-40); Albumin Level 3.6 g/dL (3.5-5.0); Alkaline Phosphatase 767 U/L (39-117); Anion Gap 12 (12-20); Aspartate Amino Transferase 110 U/L (5-37); Bilirubin Total 8.5 mg/dL (0.0-1.0); Blood Urea Nitrogen 18 mg/dL (9-16); Carbon Dioxide 23 mmol/L (22-29); Chloride 107 mmol/L (96-108); Creatinine Clr Calc Pharmacy 51.8; Estimated Glomerular Filt Rate > 60; Glucose Random 126 mg/dL (60-115); Lipase 256 U/L (8-78); Potassium 3.9 mmol/L (3.3-5.1); Sodium 138 mmol/L (135-145); Total Protein 7.4 g/dL (6.5-8.0)
--- NOTE | 2024-09-05 09:33 | ED_ITS ---
HPI - General Adult General Chief complaint: Recheck/Abnormal Lab/Rx Stated complaint: abnormal labs Time Seen by Provider: 09/05/24 09:24 Source: patient Mode of arrival: ambulatory Limitations: no limitations History of Present Illness HPI narrative: This is a 73-year-old man with a past medical history of hyperlipidemia, nephrolithiasis, GERD who presents for evaluation of abnormal lab work. Patient is box symptoms for the last several weeks. Patient reports that over the last 2-3 weeks he has noticed a leon discoloration to his stool and subsequently developed dark urine. The patient states that family noted yellow discoloration of his skin. He states no fevers or chills. He states that he has experienced some right upper and epigastric abdominal discomfort after eating. He states no chest pain or dyspnea. He states no melena or hematochezia. He states no dysuria urinary frequency/urgency. He states no family history of gallstones. Related Data Home Medications ?Medication ?Instructions ?Recorded ?Confirmed cholecalciferol (vitamin D3) 25 25 mcg PO DAILY 06/29/20 09/04/24 mcg (1,000 unit) capsule multivitamin 1 tab PO DAILY 10/27/20 09/04/24 Previous Rx's ?Medication ?Instructions ?Recorded pravastatin 20 mg tablet 20 mg PO DAILY #90 tabs 04/11/24 nabumetone 500 mg tablet 500 mg PO BID PRN pain 5 days #10 09/04/24 tabs omeprazole 20 mg capsule,delayed 20 mg PO DAILY 90 days #90 caps 09/04/24 release Allergies Allergy/AdvReac Type Severity Reaction Status Date / Time No Known Allergies Allergy Verified 09/05/24 08:30 Review of Systems 2 Review of Systems: ROS as per HPI PMF Past Medical History Medical History (Updated 09/05/24 @ 15:28 by Gerber Kessler MD) Physical exam Cyst of eyelid Bacteremia Fever of unknown origin Gram-negative bacteremia Cigarette nicotine dependence Hyperlipidemia Surgical History History of eye surgery H/O basal cell carcinoma excision Family History Family History Father Stroke Mother No problems noted. Brother No problems noted. Sister Lung cancer Social History Social History (Updated 09/04/24 @ 13:42 by Maribell Hilario MD) Household Members: Spouse Housing: Apartment Do you presently have visiting nurse or other home services: No Alcohol intake: former Patient Tobacco Use Status: Current everyday Tobacco user Tobacco use type: Cigarette Cigarette Packs Per Day: 0.5 Cigarettes Per Day: 10 e-Cigarette/Vaping Use: Never Used Second Hand Smoke Exposure: Yes Advance Directives: Yes Advance Directives on File: Yes Advance Directives Date on File: 09/16/22 Do you have a plan to hurt others: No Plan service: No Current occupational status: retired Current occupational exposures/hazards: No Cognitive needs: No Hearing needs: No Vision needs: Yes Physical Exam ED Vital Signs: Vital Signs - 24 hr 09/05/24 08:26 09/05/24 11:41 09/05/24 11:46 Temperature 96.9 F 98.0 F Pulse Rate 93 72 Respiratory Rate 16 20 18 Blood Pressure 171/90 H 132/69 Pulse Oximetry 99 98 Oxygen Delivery Method Room Air Room Air 09/05/24 12:20 Temperature 98.6 F Pulse Rate 74 Respiratory Rate 14 Blood Pressure 152/68 H Pulse Oximetry 96 Oxygen Delivery Method Room Air BMI result Body Mass Index 18.7 Gen: NAD, AOx3 HEENT: NCAT, EOMI, + scleral icterus CV: RRR Pulm: CTAB, no increased work of breathing GI: Soft, NTND, no rebound, guarding or rigidity Neuro: Grossly non focal Skin: Warm, dry, + jaundice Medications Administered Discontinued Medications Generic Name Dose Route Start Last Admin Trade Name Freq PRN Reason Stop Dose Admin Hydromorphone HCl 0.5 mg 09/05/24 11:34 09/05/24 11:41 Hydromorphone Hcl 0.5 Mg/0.5 Ml Syringe IVPUSH 09/05/24 11:35 0.5 mg ONCE ONE Administration Protocol Iohexol 100 ml 09/05/24 09:46 09/05/24 09:46 Iohexol 350 Mg/Ml 100 Ml Infus..Btl IV 09/05/24 09:47 85 ml ONCE ONE Administration Medical Decision Making Medical Decision Making MDM Narrative: Differential diagnosis includes, but is not limited to choledocholithiasis, pancreatitis, malignancy. Patient is afebrile and hemodynamically stable on room air. Exam is is notable for scleral icterus and jaundice. I reviewed the patient's labs, urinalysis and diagnostic imaging as below. I discussed my physical exam, labs, urine studies in all diagnostic imaging results//daughters. I answered all questions. Patient accepted for transfer to [facility] ED under care of Dr. Barlow with behavioral therapist, Dr. Dennison, consulting. Critical Care Time: A total of 75 minutes spent in direct patient care with coordinating critical resuscitation, procedures, reviewing records, discussing with consultants, reviewing labs, and/or managing patient. Admission/Observation Consideration of admission/observation: Escalation of care including admission/observation considered Consult Healthcare Provider Management of the patient was discussed with: Machine Carton Marker 1032 - I have discussed patient's case and management with sales consultant insurance Burrer Operator, Dr. Street, who states she discussed with Dr. Randall who recommended transfer to [facility] for EUS and ERCP. I called [facility] and discussed patient's case and management with Burrer Operator, Dr. Garcia, who accepted patient for transfer. However, in further discussion with [facility] I was notified that there was no bed available at this time and they would not be able to accept for transfer. I discussed with our hospitalist, Dr. Castro, here about potential admission prior to subsequent transfer to [facility], but admission was declined given our GI recommendation and need for procedure that cannot be performed here. I discussed case and management with [facility] transfer line and requested transfer who declined due to capacity. I discussed case and management with [facility] transfer line and Burrer Operator, Dr. Dennison, who accepted patient and recommended transfer to their site at [facility]. He agreed with current management and made no further recommendations. Lab Data MDM Lab Attestation statement: I reviewed the patient's lab results. I independently reviewed and interpreted the patient's labs, which demonstrate leukocytosis of 11.7, stable anemia of 13.5, hyperbilirubinemia, transaminitis lipase of 256. Urinalysis is noncontributory. 09/05/24 08:39 09/05/24 08:39 Labs: Lab Results 09/05/24 09/05/24 Range/Units 08:39 11:58 WBC 11.7 H (4.8-10.8) X10*3/uL RBC 4.32 L (4.60-5.80) X10*6/uL Hgb 13.5 L (14.0-18.0) g/dl Hct 38.2 L (42.0-52.0) % MCV 88.4 (80.0-98.0) fL MCH 31.3 (27.0-33.0) pg MCHC 35.3 (31.0-36.0) g/dl RDW 15.2 (11.0-16.0) % Plt Count 275 (160-400) X10*3/uL MPV 11.7 (9.4-12.4) fL Immature Gran % (Auto) Cancelled Neut % (Auto) Cancelled Lymph % (Auto) Cancelled [place] % (Auto) Cancelled Eos % (Auto) Cancelled Baso % (Auto) Cancelled Lymph # (Auto) Cancelled [place] # (Auto) Cancelled Eos # (Auto) Cancelled Baso # (Auto) Cancelled Abs Immat Gran (auto) Cancelled Absolute Neuts (auto) Cancelled Absolute Nucleated RBC 0.000 (0.0-0.012) X10*3/uL Nucleated RBC % (auto) 0.0 (0.0-0.2) /100WBC Neutrophils % (Manual) 68 (45-73) % Band Neutrophils % 0 L (3-5) % Lymphocytes % (Manual) 15 L (20-40) % Monocytes % (Manual) 13 H (2-11) % Eosinophils % (Manual) 3 (0-4) % Basophils % (Manual) 1 (0-2) % Abs Neuts (Manual) 8.0 (2.0-8.3) X10*3/uL Lymphocytes # (Manual) 1.8 (1.2-4.9) X10*3/uL Monocytes # (Manual) 1.5 H (0.1-1.2) X10*3/uL Eosinophils # (Manual) 0.4 (0.0-0.4) X10*3/uL Basophils # (Manual) 0.1 (0.0-0.2) X10*3/uL Platelet Estimate NORMAL (NORMAL) Plt Morphology Comment NORMAL RBC Morphology NORMAL Sodium 138 (135-145) mmol/L Potassium 3.9 (3.3-5.1) mmol/L Chloride 107 (96-108) mmol/L Carbon Dioxide 23 (22-29) mmol/L Anion Gap 12 (12-20) BUN 18 H (9-16) mg/dL Creatinine 0.93 (0.5-1.4) mg/dL Estim Creat Clear Calc 51.8 Estimated GFR > 60 Random Glucose 126 H (60-115) mg/dL Calcium 10.0 (8.4-10.2) mg/dL Total Bilirubin 8.5 H (0.0-1.0) mg/dL Direct Bilirubin 6.7 H (0.0-0.5) mg/dL AST 110 H (5-37) U/L ALT 151 H (0-40) U/L Alkaline Phosphatase 767 H (39-117) U/L Total Protein 7.4 (6.5-8.0) g/dL Albumin 3.6 (3.5-5.0) g/dL Lipase 256 H (8-78) U/L Urine Color Dark Yellow Urine Appearance Clear Urine pH 5.5 (5.0-9.0) Ur Specific [place] >= 1.030 H (1.005-1.025) Urine Protein Trace (Neg-Trace) mg/dL Urine Glucose (UA) Negative (Negative) mg/dL Urine Ketones Trace (Negative) mg/dL Urine Blood Negative (Negative) Urine Nitrite Negative (Negative) Ur Leukocyte Esterase Negative (Negative) Radiology Impression Discussion of test interpretation with radiology: I discussed test interpretation with the radiologist and I have reviewed the radiologist's reading. Radiologist Impression: 1030 - I receieved a phone call from Radiologist, Dr. Nagy, who states noting 4cm uncinate pancreatic mass with concern for malignancy and causing obstruction CT/CT abdomen pelvis w IV con IMPRESSION: 4.2 x 3.2 x 3.1 cm soft tissue mass in the uncinate process of the pancreas causing biliary obstruction. Enlarged 3.4 x 2.4 cm aortocaval lymph node. Findings are compatible with pancreatic adenocarcinoma. These findings were discussed with Dr. Kessler in the emergency room on 09/05/2024 at 10:25 AM. Electronically signed by: Nikita Nagy MD 09/05/2024 10:33 AM EDT Dictated By: Nikita Nagy MD Signed By: <Electronically signed by Nikita Nagy MD in OV> 09/05/24 1033 Impression: 1. Solid heterogeneous mass within the head of the pancreas causing biliary and pancreatic ductal dilatation considered malignant. 2. Gallbladder hydrops with layering gallbladder sludge. Dilated common bile duct with echogenic sludge. Intrahepatic ductal dilatation. 3. Parapelvic and renal cortical cyst right kidney as described This document has been electronically signed by: Jarvis Bishop MD on 09/05/2024 11:37:26 Dictated By: Jarvis Bishop MD Signed By: <Electronically signed by Jarvis Bishop MD in OV> 09/05/24 1138 Discharge Plan Discharge Clinical Impression: Mass of pancreas, Jaundice, Elevated LFTs, Hyperbilirubinemia Patient Disposition: [facility] Transfer Details: Transfer to [facility] ED Prescriptions: No Action pravastatin 20 mg tablet 20 mg PO DAILY Qty: 90 3RF cholecalciferol (vitamin D3) 25 mcg (1,000 unit) capsule 25 mcg PO DAILY multivitamin Tablet 1 tab PO DAILY omeprazole 20 mg capsule,delayed release(DR/EC) 20 mg PO DAILY 90 Days Qty: 90 1RF nabumetone 500 mg tablet 500 mg PO BID PRN (Reason: pain) 5 Days Qty: 10 0RF Print Language: Burundian
[2024-09-05] MEDS: iohexoL 350 MG/ML 100 ML INFUS..BTL IV (09:46)
[2024-09-05 09:47] LABS: Band Neutrophils Percent 0 % (3-5); Basophils Percent Manual 1 % (0-2); Eosinophils Percent Manual 3 % (0-4); Lymphocytes Percent Manual 15 % (20-40); Monocytes Percent Manual 13 % (2-11); Neutrophils Percent Manual 68 % (45-73)
[2024-09-05 09:52] LABS: Basophils Abs Manual 0.1 X10*3/uL (0.0-0.2); Eosinophils Absolute Manual 0.4 X10*3/uL (0.0-0.4); Lymphocytes Absolute Manual 1.8 X10*3/uL (1.2-4.9); Monocytes Absolute Manual 1.5 X10*3/uL (0.1-1.2); Platelet Estimate NORMAL (NORMAL); Platelet Morphology Comment NORMAL; RBC Morphology NORMAL; White Blood Count 11.7 X10*3/uL (4.8-10.8)
[2024-09-05 09:55] LABS: Bilirubin Direct 6.7 mg/dL (0.0-0.5)
[2024-09-05] MEDS: HYDROmorphone HCl 0.5 MG/0.5 ML SYRINGE IVPUSH ×2 (11:41→16:24)
[2024-09-05 12:08] LABS: Appearance Urine Clear; Color Urine Dark Yellow; Glucose Urine UA Negative (Negative); Leukocyte Esterase Urine Negative (Negative); Nitrite Urine Negative (Negative); PH 5.5 (5.0-9.0); Specific Gravity - Urine >= 1.030 (1.005-1.025); Urine Blood Negative (Negative); Urine Ketones Trace mg/dL (Negative); Urine Protein Trace mg/dL (Neg-Trace)
[2024-09-05] MEDS: oxyCODONE HCl Immed Release 5 MG TABLET PO (16:23)
--- NOTE | 2024-09-05 18:39 | PC.NURSE ---
Attempted to give report to [facility] ED, transfered to nursing roofing supervisor then transferred back to ED. Charge nurse declined to accept report on pt.
== END 2024-09-05 19:18 | disposition short-term general hospital (02) ==
PROVIDERS: Emergency Provider Emergency Medicine; PCP Internal Medicine
DX: K86.9 Disease of pancreas, unspecified (principal); R17 Unspecified jaundice; R79.89 Other specified abnormal findings of blood chemistry; E80.6 Other disorders of bilirubin metabolism; R10.13 Epigastric pain; E78.5 Hyperlipidemia, unspecified; F17.210 Nicotine dependence, cigarettes, uncomplicated; Z79.02 Long term (current) use of antithrombotics/antiplatelets; Z79.899 Other long term (current) drug therapy
CPT/HCPCS: 36415; 74177; 76705; 80053; 81003; 82248; 83690; 85007; 85027; 96374; 96376; 99285; J1171; Q9967

== ENCOUNTER → 2024-09-05 09:35 | Outpatient (BNV) | payer MEDICARE, MEDICAID, SELFPAY | PROVIDERS: Emergency Provider Emergency Medicine; PCP Internal Medicine; Visit Provider Radiology Diagnostic Radiology | DX: R79.89 Other specified abnormal findings of blood chemistry (principal) | CPT/HCPCS: 74177; 76705 ==

== ENCOUNTER → 2024-09-26 13:47 | Outpatient (BNVA) | payer MEDICARE, MEDICAID, SELFPAY | PROVIDERS: PCP Internal Medicine | DX: Z13.89 Encounter for screening for other disorder (principal) ==